=== PATIENT | female | born 1970 | race Caucasian/White ===

== ENCOUNTER 2024-05-05 17:33 | Emergency (ER) | payer OTHER, SELFPAY ==
[2024-05-05 17:40] VITALS: BP 142/88; PULSE 70; RESP 18; TEMP 36.7; O2SAT 96; BMI 34.3
--- NOTE | 2024-05-05 17:58 | CRLHL7_ITS ---
For Patients: As a result of the Cures Act, medical imaging exams and procedure reports are released immediately into your electronic medical record. You may view this report before your referring provider. If you have questions, please contact your health care provider. Indication: .FOOSH, FELT POP AND POP BACK IN Technique: Three views right shoulder. Comparison: None. Findings/Impression: Ossific focus overlying the superior aspect of the humeral head. Favoring osseous loose body versus a fracture fragment given history of potential reported dislocation. No malalignment. No soft tissue swelling. Joint spaces are maintained. Bony mineralization is age appropriate. Dictated by Juancho Villaseñor MD @ 05/05/2024 6:20:19 PM (Electronically Signed)
--- NOTE | 2024-05-05 18:00 | ED.GENADULT ---
HPI - General Adult General Chief complaint: Extremity Pain/Injury, Upper Stated complaint: Fall, r shoulder injury Time Seen by Provider: 05/05/24 17:34 Source: patient Mode of arrival: ambulatory Limitations: no limitations History of Present Illness HPI narrative: 54-year-old female presents the emergency department 90 minutes after a fall on her outstretched hands. She reports she was walking through a parking garage in [place]. She tripped over some uneven concrete. She fell quickly forward but was able to kind of half we catch herself on her hands before then the main impact was on to her right shoulder. She said she felt like there was a pop and then when she went to get back up she says that she possibly feels like the shoulder popped back in. She has never had a previous dislocation, major injury or surgery to that area. She is able to move the elbow, wrist and hand with no complication. She does think that are may be starting to swell. She has exquisite pain any time she tries to abduct the arm at the shoulder. No other areas of injury noted. She did take a 1000 mg of Tylenol p.o. x1 about 1 hour ago. No anticoagulants. No history of neuropathy. No cardiopulmonary symptoms. No recent illness. Past medical history notable for depression anxiety. Reports that her only home medication is sertraline. No allergies. Nonsmoker. ROS is notable for no other skin, neurological, musculoskeletal or generalized concerns today. Related Data Home Medications ?Medication ?Instructions ?Recorded ?Confirmed esomeprazole magnesium 20 mg 20 mg PO DAILY 05/05/24 05/05/24 capsule,delayed release hydroxyzine HCl 10 mg tablet 10 mg PO Q8H PRN 05/05/24 05/05/24 sertraline 50 mg tablet (Zoloft) 50 mg PO DAILY 05/05/24 05/05/24 tizanidine 4 mg capsule 4 mg PO Q6H PRN 05/05/24 05/05/24 Allergies Allergy/AdvReac Type Severity Reaction Status Date / Time No Known Drug Allergies Allergy Verified 05/05/24 17:39 Exam Const: Vital Signs, click to edit/add: Vital Signs - 24 hr 05/05/24 17:40 Temperature 98.0 F Pulse Rate [Pulse Oximeter] 70 Respiratory Rate 18 Blood Pressure [Le ft Upper Arm] 142/88 H Pulse Oximetry 96 Oxygen Delivery Me thod Room Air Documenting provider has reviewed patient's vital signs: yes Common normals: no apparent distress General appearance: cooperative and well kempt Other: Appears visibly uncomfortable but very cooperative. No signs of intoxication or impairment. HENMT: Common normals: normocephalic and head/scalp atraumatic Head and scalp: normocephalic and atraumatic Face and sinus: normal facial exam Mouth: oral and palatal mucosa normal Throat: posterior oropharynx normal Eye: Common normals: conjunctivae normal General eye: normal appearance of both eyes Conjunctiva: conjunctiva(e) normal Neck & C-Spine: General: normal visual inspection Resp: Common normals: normal respiratory effort and no use of accessory muscles Effort & inspection: able to speak in complete sentences Cardio: Other: Regular radial pulses both sides. Normal capillary refill in all fingers. Extremity: Other: Right arm has no point bony tenderness to the acromion, clavicle or humeral head. Mild swelling is appreciated. Patient has significant pain with flexion, extension and abduction of the shoulder. No obvious gross deformity visible. Patient has normal range of motion of elbow to flexion extension supination and pronation. Both wrists with normal range of motion as she also has normal strength and movement in both hands. Hands without visual deformity, abrasion or major injury. Psych: Appearance: well kempt Attitude: engaged Activity/motor behavior: appropriate eye contact Mood and affect: euthymic mood Insight: insight good Judgement: judgment good Skin: Common normals: no rashes or lesions noted General skin exam: no rashes or lesions noted Course Course ED Course: 54-year-old female with fall on outstretched hands and then impact to right shoulder. Fall from standing height. Differential diagnosis including sprain, rotator cuff tear, shoulder, labral tear, dislocation with spontaneous relocation, sprain, tendon or ligamentous injury. Does not seem to be any evidence of neurovascular injuries distal to shoulder. Recommend Toradol and oxycodone for pain as she has already taken Tylenol. X-ray. Await findings. Reevaluation(s) Time of Reevaluation #1: 18:48 Reevaluation #1: Counseled patient on x-ray findings. No obvious large fracture but there is a small loose body that is suspicious for a small avulsion fracture. Could potentially have ligamentous tear. No obvious shoulder separation does have some mild degenerative changes, not uncommon for age. She is feeling somewhat better from the Toradol and oxycodone already. Counseled on use of a sling with activity, taking out of the sling at rest and performing [id number] exercises. I do have some concerns due to the loose body and amount of pain that she may have a larger injury. Referral has been placed for Orthopedics. She will call in the morning to secure her appointment. Counseled on Tylenol for primary pain management. Prescriptions for Toradol and then oxycodone given as well. Hopefully the oxycodone is only needed at night. Counseled on [id number] sleep aids. 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 Off of work tomorrow. Alarm symptoms reviewed that would warrant ED presentation. She verbalizes understanding and agreement. Written instructions provided. Vital Signs Vital signs: Initial Vital Signs Temperature 98.0 F 05/05/24 17:40 Temperature Source Temporal Artery Scan 05/05/24 17:40 Pulse Rate 70 05/05/24 17:40 Pulse Rhythm Regular 05/05/24 17:40 Respiratory Rate 18 05/05/24 17:40 Blood Pressure 142/88 H 05/05/24 17:40 Blood Pressure Mean 106 H 05/05/24 17:40 Blood Pressure Position Sitting 05/05/24 17:40 Pulse Oximetry 96 05/05/24 17:40 Oxygen Delivery Method Room Air 05/05/24 17:40 Vital Signs Temperature 98.0 F 05/05/24 17:40 Pulse Rate 70 05/05/24 17:40 Respiratory Rate 18 05/05/24 17:40 Blood Pressure 142/88 H 05/05/24 17:40 Pulse Oximetry 96 05/05/24 17:40 Oxygen Delivery Method Room Air 05/05/24 17:40 Temperature 98.0 F 05/05/24 17:40 Pulse Rate 70 05/05/24 17:40 Respiratory Rate 18 05/05/24 17:40 Blood Pressure 142/88 H 05/05/24 17:40 Pulse Oximetry 96 05/05/24 17:40 Oxygen Delivery Method Room Air 05/05/24 17:40 Medications Administered Medications: Discontinued Medications Generic Name Dose Route Start Last Admin Trade Name Freq PRN Reason Stop Dose Admin Ketorolac Tromethamine 10 mg 05/05/24 18:00 05/05/24 18:12 Ketorolac 10 Mg Tablet PO 05/05/24 18:01 10 mg ONCE ONE Administration Oxycodone HCl 5 mg 05/05/24 18:00 05/05/24 18:13 Oxycodone 5 Mg Tablet PO 05/05/24 18:01 5 mg ONCE ONE Administration Medical Decision Making Imaging Data X-ray right shoulder: Attestation: I have reviewed the pertinent imaging results. My impression: Looks like a little fracture segment versus loose body at the superior humeral head, best seen on the AP view. Radiologist's impression: Findings/Impression: Ossific focus overlying the superior aspect of the humeral head. Favoring osseous loose body versus a fracture fragment given history of potential reported dislocation. No malalignment. No soft tissue swelling. Joint spaces are maintained. Bony mineralization is age appropriate. Dictated by Juancho Villaseñor MD @ 05/05/2024 6:20:19 PM Discharge Plan Discharge Clinical Impression: Shoulder sprain Patient Disposition: Home w/ Parent or Adult Condition: Stable Instructions: Shoulder Sprain (ED) Additional Instructions: As we discussed, I do have concern that there could be a small fracture and or ligament tear from her injury. Like you, I do suspect that you dislocated your shoulder with the fall and then the shoulder went back in socket. This often stretches and can tear supporting ligaments. It is not uncommon that these heal spontaneously and do not need surgery. Because I do have more concerns with your injury than the typical shoulder sprain, I would recommend that you follow-up with Orthopedics soon. Please call [phone] tomorrow morning to set up an appointment. They will usually see you within a week or so. Expect the arm to be a little swollen and very tender with movement. As we discussed, try to perform some range of motion exercises every hour or so while awake to help keep the shoulder from getting too stiff. Wear the sling with ambulation and activity just for protection. Feel free to adjust this as needed for optimal comfort. You may take it off to shower and sleep. For pain, recommend Tylenol 1000 mg every 6 hours. I have also given you prescription for Toradol 10 mg up to every 6 hours as needed as well. Rumor that this medication axis similarly to ibuprofen, do not also take ibuprofen while you are using the Toradol. When she ran out of the Toradol, you may turns his gonzalez on to 600 mg of ibuprofen every 6 hours. I have also given you a very small supply of oxycodone. I am hoping that you only need this at night. You may use 1-2 tablets at a time. If you need more of them, that would need to come from her primary care provider and or orthopedic team. It is okay to use gentle [id number] sleep aids like Tylenol p.m., Unisom and or 10 mg of melatonin to help with sleep as well. Any signs of severe complications, please return to the emergency department. Activity Level: Activity as Tolerated Discharge Diet: Regular Prescriptions: No Action sertraline [Zoloft] 50 mg tablet 50 mg PO DAILY tizanidine 4 mg capsule 4 mg PO Q6H PRN Rx Instructions: do not exceed 3 doses per 24 hrs hydroxyzine HCl 10 mg tablet 10 mg PO Q8H PRN Rx Instructions: Take 1-2 tab by mouth every 8 hrs as needed for anxiety esomeprazole magnesium 20 mg capsule,delayed release(DR/EC) 20 mg PO DAILY Follow Up/Referrals: Orthopedics, [facility] [Provider Group] - 2 Days (1st available orthopedic provider) Stand Alone Forms: [facility] Info Instructions
[2024-05-05] MEDS: KETOROLAC 10 MG TABLET PO (18:12)
[2024-05-05] MEDS: OXYCODONE 5 MG TABLET PO (18:13)
--- OUTSIDE RECORDS SUMMARY | 2024-05-05 18:51 | XMS_ITS | Clinical Summary ---
Author Organization [facility] Address [place], [place] [address] Care Team Providers Care Software Design Engineer Name Role Phone Maikel Ulloa Primary Care Provider [phone] Allergies No known active allergies Medications Medication Sig Dispensed Refills Start Date End Date Status Esomeprazole Magnesium 20 mg grps 08/06/2020 Active tiZANidine (ZANAFLEX) 4 mg tabletIndication s:Migraine syndrome Take 1 Tablet (4 mg) by mouth every 6 hours if needed for Muscle Spasm. 90 Tablet 1 04/17/2022 Active hydrOXYzine HCL (ATARAX) 10 mg tabletIndication s:Depression with anxiety Take 1-2 Tablets (10-20 mg) by mouth every 8 hours if needed for Anxiety. 25 Tablet 2 06/16/2023 Active sertraline (ZOLOFT) 50 mg tabletIndication s:Depression with anxiety Take 1 Tablet (50 mg) by mouth every morning. 90 Tablet 3 07/16/2023 Active CPAPIndications: JON (obstructive sleep apnea) CPAP (E0601) machine for home use at pressure: 5-16 , Choice of mask (A7030 or A7034) w/full face cushion (A7031) x1/mo, nasal cushion (A7032) x2/mo, or nasal pillows (A7033) x 2/mo; Length of Need: 99 months; Frequency of use: Daily 1 Each 04/08/2024 Active CPAPIndications: JON (obstructive sleep apnea),Non-juan luis rative sleep New CPAP machine for home use at pressure: 5-16 cmw , Heated humidifier x 1 q 5 yr, Humidifier chamber x 1 q 6 mo, Full face mask x1 q 3mos, with cushion x 1 q mo, Heated tubing x 1 q 3 mo, Headgear x 1 q 6 mo, Filters: Disposable x 2 q mo non-disposable filters x1 q 6mo, Length of Need: 99 months, Frequency of use: Daily 1 Each 3 09/04/2023 04/08/2024 Discontinued (*Medication adjustment) Active Problems Problem Noted Date Diagnosed Date Chronic GERD 10/12/2018 Hot flashes 05/26/2016 Unspecified examination 04/14/2013 Overview (11/02/2018): mammo , 10/22 IGT (impaired glucose tolerance) 03/29/2013 Depression with anxiety 12/20/2010 Routine health maintenance 12/20/2010 Obese 12/20/2010 Resolved Problems Problem Noted Date Diagnosed Date Resolved Date Anemia 12/23/2010 10/08/2018 Encounters Date Type Department Care Team Description 04/08/2024 8:40 AM CDT Telemedicine [facility] [address] [facility] [address] [facility] [address] [place] [address] Mei Carney, LINK MACHINE OPERATOR Telehealth 04/07/2024 Travel from Last 3 Months Immunizations Name Administration Dates Next Due COVID-19 vaccine (Pfizer-Bio NTech 30mcg/0.3mL) 12YO+ BIVALENT PF, MDV 06/13/2022 COVID-19 vaccine (Pfizer-Bio NTech 30mcg/0.3mL) PF, MDV 06/10/2021,10/31/2020,10/10/2020 Influenza A (H1N1), Inactivated 07/11/2009 Influenza, IIV3 (Age >=3 years) 04/21/20 17,04/11/2016,04/10/2015,2013,04/11/2013,04/07/2012,04/10/2010 Influenza, IIV4 05/11/2023,04/17/2022,05/03/2021 Influenza, IIV4 (=>6mos) MDV 05/03/2019,04/27/20 18,04/17/2017 Influenza,CCIIV4 PRESERV FREE 04/18/2020 Rubella 12/13/2004 Td (Age >=7 Years) 06/06/2004 Tdap 05/26/2014 Zoster (Shingrix-RZV, recombinant) 05/03/2021, Family History Medical History Relation Name Comments Good Health Daughter Cancer-prostate Father Cancer-breast Maternal Aunt Heart attack Maternal Grandfather Cancer Maternal Grandmother Alzheimer's disease Mother Cancer-breast Mother Mental illness Paternal Grandmother Good Health Sister Relation Name Status Comments Daughter Alive Father Alive Maternal Aunt diagnosed 40 Maternal Grandfather Maternal Grandmother Mother Alive Paternal Grandfather Paternal Grandmother Sister Alive Social History Tobacco Use Types Packs/Day Years Used Date Smoking Tobacco: Never Smokeless Tobacco: Never Tobacco Cessation:Counseling Given: Yes Alcohol Use Standard Drinks/Week Comments Yes 1 (1 standard drink = 0.6 oz pur e alcohol) 1-2 a week PHQ-2 Answer Date Recorded PHQ-2 TOTAL SCORE 1 06/16/2023 Social Connections Answer Date Recorded Do you often feel lonely or isolated from those around you? 0 06/16/2023 Financial Resource Strain Answer Date R ecorded Difficulty of Paying Living Expenses 3 06/16/2023 Difficulty of Paying Living Expenses Not on file 06/16/2023 Food Insecurity Answer Date Recorded Do you worry your food will run out before you are able to buy more? 1 06/16/2023 Transportation Needs Answer Date Record ed Does lack of transportation keep you from medica l appointments? 1 06/16/2023 Does lack of transportation keep you from work, meetings or getting things that you need? 1 06/16/2023 Housing Stability Answer Date Recorded What is your housing situation today? 1 06/16/2023 Sex and Gender Information Value Date Recorded Sex Assigned at Female 01/10/2021 9:23 AM CDT Gender Identity Female 01/10/2021 9:23 AM CDT Sexual Orientation Straight 01/10/2021 9: 23 AM CDT Obstetrics History Last Filed Vital Signs Vital Sign Reading Time Taken Comments Blood Pressure 122/74 06/16/2023 10:51 AM HORSE BUYER Pulse 76 04/17/2022 8:29 AM CDT Temperature 37.3 ??C (99.1 ??F) 02/02/2019 4:46 PM CD T Respiratory Rate 16 02/02/2019 4:46 PM CDT Oxygen Saturation 97% 02/02/2019 4:46 PM CDT Inhaled Oxygen Concentration - - Weight 103 kg (227 lb) 06/16/2023 10:51 AM HORSE BUYER Height 163.2 cm (5' 4.25) 06/16/2023 10:[address] Body Mass Index 38.66 06/16/2023 10:51 AM HORSE BUYER Plan of Treatment Health Maintenance Due Date Last Done Comments HIV for age 15-65 12/31/1982 Hepatitis C screening for age 18-79 12/31/1985 COVID-19 vaccine series (2023- season) 2024 05/15/2023, 06/13/2022, 06/10/2021, Additional history exists Influenza for age 50-64 03/06/2024 05/11/20 23, 04/17/2022, 05/03/2021, Additional history exists Tetanus booster 05/26/2024 05/26/2014, 08/2003, 06/06/2004 BMI (ht and wt on same day) for age 18+ 06/16/2024 06/16/2023, 04/17/2022, 02/02/2019, Additional history exists Depression screening for age 12+ 06/18/2024 06/18/2023, 06/16/2023, 05/22/2022, Additional history exists Mammogram for age 45-75 08/17/2024 08/17/19 24, 06/18/2022, 04/03/2021, Additional history exists Colonoscopy through age 75 09/20/2024 09/20/2021, Pap test for age 21-65 01/22/2026 , 01/22/2021, 05/26/2016, Additional history exists Lipids for age 45-75 09/30/2028 10/01/2023, 06/16/2023, 04/17/2022, Additional history exists Tdap Completed 05/26/2014 Zoster (shingles) series for age 50+ Completed 05/03/2021, 02/01/2021 Pneumococcal series for age 6-64 Aged Out No longer eligible based on patient's age to complete this topic Procedures Procedure Name Priority Date/Time Associated Diagnosis Comments LIPID PANEL W REFLEX MEASURED LDL Routine 10/01/2023 9:07 AM CDT Abnormal cholesterol test XR MAMMO SARA BILAT SCREEN Routine 08/17/2023 12:05 PM HORSE BUYER Encounter for screening mammogram for breast cancer SCAN-COLONOSCOPY 09/20/2021 9:00 AM CDT SPOOL TENDER THIN PREP PAP SCREEN IMAGED Routine 01/22/2021 8:10 AM CDT Pap smear for cervical cancer screening from Last 3 Months or Most Recently Relevant to Health Maintenance Results * (ABNORMAL) LIPID PANEL W REFLEX MEASURED LDL (10/01/2023 9:07 AM CDT) CHOLESTEROL,TOTAL 182 100 - 199 mg/dL 10/01/2023 2:42 PM CDT [facility] Comment: Cholesterol, Total Reference Ranges Desirable <200 mg/dL Borderline 200-239 mg/dL High >=240 mg/dL TRIGLYCERIDES 152(H) <150 mg/dL 10/01/2023 2:42 PM CDT [facility] Pembe Panjur [facility] HDL CHOLESTEROL 43 >40 mg/dL 2:42 PM CDT [facility] NON-HDL CHOLESTEROL 139 <145 mg/dl 10/01/2023 2:42 PM CDT [facility] CHOL/HDL RATIO 4.23 <4.50 10/01/2023 2:42 PM CDT [facility] LDL CHOLESTEROL 109 <=130 mg/dL 10/01/2023 2:42 PM CDT [facility] VLDL CHOLESTEROL 30 <=30 mg/dL 10/01/2023 2:42 PM CDT [facility] PROVIDER ORDERED STATUS FASTING 10/01/2023 2:42 PM CDT [facility] Blood BLOOD SPECIMEN / Unknown Venipuncture / Unknown 10/01/2023 9:07 AM CDT 10/01/2023 9:09 AM CDT Maikel BAILON CHEMISTRY [facility] [address] [place] [address], * XR MAMMO SARA BILAT SCREEN (08/17/2023 12:05 PM HORSE BUYER) Anatomical Region Laterality Modality BREASTS, Breast Left, Breast Right Bilateral Mammography Impressions 08/18/2023 9:53 AM HORSE BUYER ??There is no radiographic evidence for malignancy. ??Recommend annual mammograms. MAMMOGRAM ASSESSMENT: ??ACR 1 Negative PATIENTS: You will also receive a letter with your examination results in an easy to read format. ??If you have questions about your results, please contact your referring provider. Narrative 08/18/2023 9:53 AM HORSE BUYER For Patients: As a result of the Cures Act, medical imaging exams and procedure reports are released immediately into your electronic medical record. You may view this report before your referring provider. If you have questions, please contact your health care provider. XR MAMMO SARA BILAT SCREEN [[id number]] CLINICAL HISTORY: ??This is an asymptomatic 53 y.o. patient. INDICATION FOR EXAM: Mammogram Screening. TECHNIQUE: CC & MLO views were obtained. ??This study was evaluated with the assistance of Computer-Aided Detection. Breast Tomosynthesis was used in interpretation. COMPARISON FILM: Yes 06/18/22 [facility] 04/03/21 [facility] FINDINGS: ??The breasts have scattered areas of fibroglandular density. There are no dominant masses, suspicious micro calcifications or areas of architectural distortion. Maikel BAILON MAMMO * SCAN-COLONOSCOPY (09/20/2021 9:00 AM CDT) Narrative Procedure Note Haris Falcon DO - 09/20/2021 8:16 AM CDT [facility] [address] [place] [address], [address], [place] [address] Patient Name: Daisy Brooks Gender: Female Exam Date: 09/20/2021 Visit Number: [id number] Age: 51 Years Date of : 1970 Attending MD: Haris Falcon DO Medical Record#: [id number] Procedure: Colonoscopy Indications: Colorectal cancer screening Previous colonoscopy aborted due to vomiting Referring MD: Maikel DOE Primary MD: Maikel DOE Medications: Admitting Medications: 0.9% Normal Saline at TKO Ondansetron Hydrochloride (Zofran) given 4mg by IV Intra Procedure Medications: Patient received monitored anesthesia care. Complications: No immediate complications Procedure: An examination of the heart and lungs was performed and found to be withinacceptable limits. . The patient was therefore deemed a reasonablecandidate for endoscopy and sedation. The risks and benefits of the procedure were explained to the patient.After obtaining informed consent, the patient received monitoredanesthesia care and I passed the scope without difficulty via the rectum to the cecum. The appendiceal orificeand ic valve were identified. The scope was retroflexed during theexamination The quality of the prep was fair (Miralax/Gatorade/2 tabletsBisacodyl/Magnesium Citrate). This was a complete examination throughout the entire colon. Findings: Polyp location: rectum. Quantity: 1. Size: 12 mm. Polyp shape: flatlesion. Maneuver: polypectomy was performed with a cold snare. Removal: complete. Retrieval: complete. Bleeding: none. Diverticulosis. Location: - sigmoid. Description: mild. Noinflammation present. Hemorrhoids. Internal and external hemorrhoids without bleeding. Remainder of the exam is normal. Impression: Rectal polyp Diverticular disease Hemorrhoids, unspecified hemorrhoid type impression comments: As with the previous exam, the patient was notedto be prone to retching/coughing during colonoscopy. Thankfully, therewas no serjio emesis during these procedures. Preliminary Plan: Recommendation Comments: 1. Await biopsy results. 2. Further endoscopic procedures should be scheduled in the hospital, lowthreshold for intubation/airway protection. Procedure: Upper GI Endoscopy Indications: Abdominal Pain Early satiety GERD Provider: Haris Ezekiel DO Referring MD: Maikel DOE Primary MD: Maikel DOE Medications: Admitting Medication: 0.9% Normal Saline at TKO Ondansetron Hydrochloride (Zofran) given 4mg by IV Intra Procedure Medications: Patient received monitored anesthesia care. Complications: No immediate complications Procedure: An examination of the heart and lungs was performed within acceptablelimits. . The patient was therefore deemed a reasonable candidate forsedation. The risks and benefits were explained to the patient, who appeared tounderstand. After obtaining informed consent, the scope was passed underdirect vision. Throughout the procedure the patient's blood pressure,pulse and oxygen saturations were monitored. The scope was introducedthrough the mouth and advanced to the second portion of duodenum. Findings: Esophagus: Normal esophagus. The z-line is 38 centimeters from the incisors. Top of the gastric foldsis 38 centimeters from the incisors. Stomach: Normal stomach. The diaphragm hiatus is at 38 centimeters from the incisors. *Stomach Comments: Biopsies obtained from the gastric antrum, incisura,and body with a cold forceps. Duodenum: Normal duodenum. Celiac Sprue biopsies taken. Celiac Sprue biopsies taken. Impression: GERD without esophagitis Generalized postprandial abdominal pain Early satiety MD Impression Comments: Gastric emptying study from 04/2021 noted to benormal. No findings on this exam to account for symptoms. Preliminary Plan: Recommendation Comments: 1. Await biopsy results. 2. Colonoscopy as scheduled. 3. Return to GI clinic. Pathology Results: A: DUODENUM, BIOPSY: 1. Normal duodenal mucosa 2. Negative for celiac disease and other enteropathy B: STOMACH, BIOPSY: 1. Normal gastric antral and body mucosae 2. Negative for Helicobacter C: RECTUM, POLYP: 1. Tubular adenoma consistent with advanced adenoma due to size(see comment) 2. Negative for high grade dysplasia and invasive malignancy 3. Per the colonoscopy report: a. Polyp size: 12 mm b. Resection: Complete c. Retrieval: Complete COMMENTS C. Advanced adenoma of the colorectum is defined by the [place] [employer] G[employer] (ACG) as an adenoma that is 1 cm or more in size,contains an appreciable villous component, or has high grade dysplasia(David RIVERS; Polyp Guideline: Diagnosis, Treatment, and Surveillance forPatients with Colorectal Polyps. Am J [id number];95(11):1760-0440). This polyp qualifies as such. Patients withadvanced adenomas are at increased risk for synchronous and metachronousadditional advanced adenomas. Appropriate follow-up is suggested. MICROSCOPIC A: Performed B: Performed C: Performed Electronically signed by: Deann Maravilla MD Interpreted at [facility], [address] [place] [address] Orders Instruction(s)/Education: Instruction/Education Timeframe Assessment Colon Cancer Prevention K62.1 Colon Polyps K62.1 Diverticulosis/Diverticulitis K62.1 Hemorrhoids (External) K62.1 Hemorrhoids (Internal) K62.1 High Fiber Diet K62.1 Final Plan: Repeat colonoscopy in 3 years. We will attempt to contact you at appropriate intervals via U.S. mail. Wemay not be able to find you or contact you at that time, therefore youshould know that the responsibility for following our recommendation restswith you. If you don't hear from us at the time your procedure is due,please contact our office to schedule an appointment. If your contactinformation should change, please contact our office so that we can updateyour record. Additional Comments: We will arrange a follow up colonoscopy for you in 3 years. _Electronically signed by: Haris Falcon DO 09/20/2021 cc: Maikel Ulloa PAC cc: Maikel Ulloa PAC Haris Falcon DO OTHER * SPOOL TENDER THIN PREP PAP SCREEN IMAGED (01/22/2021 8:10 AM CDT) Case Report Gynecologic Cytology Report ? Case: [id number] ? Authorizing Provider: ??Maikel Ulloa PA ? Collected: ? 01/22/2021 0810 ? Ordering Location: ? [facility] ?Received: ?01/22/2021 0823 ? Clinic ? First Screen: ?Tiff Holloway ? Specimen: ?SPOOL TENDER ThinPrep Vial Screening, Cervical ? 01/31/2021 10:48 AM CDT [facility] Pembe Pan[facility] INTERPRETATION/ RESULT NEGATIVE FOR INTRAEPITHELIAL LESION OR MALIGNANCY (NIL) (none) 01/31/2021 10:48 AM T [facility]- [facility] IMEN ADEQUACY Satisfactory for evaluation Endocervical component present 01/31/2021 10:48 AM CDT [facility] HPV REQUEST HPV and PAP 01/31/2021 10:48 AM CDT [facility] Pembe Panjur LABORATORY-C ENTRAL LABORATORY Date of LMP unknown 01/31/2021 10:48 AM CDT [facility] Last Pap Date 05/26/16 01/31/2021 10:48 AM CDT [facility] Last Pap Result NIL 10:48 AM CDT [facility] Abnormal Pap or Ennis Bx in last 5 years No 01/31/2021 10:48 AM CDT [facility] Menstrual Status Postmenopausal 01/31/2021 10:48 AM CDT [facility] Ennis Bx Done Today No 01/31/2021 10:48 AM CDT [facility] Additional Information None given 01/31/2021 10:48 AM CDT [facility] Comment: Cytology is screened at [facility] - [address], [place] [address] and [facility] - [address], [place] [address] and [facility] - [address] [place] [address] Interpreted at [facility] - [address] [place] [id number] Automated Review Successful 01/31/2021 10:48 AM CDT [facility] Comment:Specimen processed s uccessfully by automated lock setter device, ThinPrep Imaging System, [employer] ANCILLARY TESTING SPOOL TENDER HPV Ordered, Please see separate report 01/31/2021 10:48 AM CDT [facility] Note The pap test is a screening technique, not a diagnostic procedure. It is used primarily to screen for squamous cancers and precursor lesions. Published studies have shown that it is subject to both false negative and false positive results. The pap test should not be used as the sole means to diagnose or exclude pre-malignant and malignant lesions. 01/31/2021 10:48 AM CDT [facility] Other (Cervical) Non-Blood / Unknown 01/22/2021 8:10 AM CDT 01/22/2021 8:23 AM CDT Maikel BAILON PATHOLOGY/CYTOLOGY [facility] [address] [place] [address], [place] from Last 3 Months or Most Recently Relevant to Health Maintenance Advance Directives * Full Code (Latest Code Status on File) Date Activated Date Inactivated Comments 10/18/2018 9:47 AM 10/18/2018 3:16 PM Care Teams Software Design Engineer Relationship Specialty [place] [address] [place] [address] PCP - General Physician Morning Nanny 01/14/21
--- OUTSIDE RECORDS SUMMARY | 2024-05-05 18:51 | XMS_ITS | Referral Summary ---
Author Organization [place] Address [address] [place] [address] Care Team Providers Care Health Information Management Director Name Role Phone Juan José Doherty MD Primary Care Provider [phone] Allergies No known active allergies Medications CITALOPRAM HYDROBROMIDE PO Acti ve oxyCODONE (ROXICODONE) 5 MG tablet Take 1 tablet (5 mg) by mouth every 6 hours as needed for pain 12 tablet 07/01/2019 Active Social History Tobacco Use Types Packs/Day Years Used Date Smoking Tobacco: Never Assessed Adolescent Education Answer Date Record ed Getting School Help Needed Not on file 04/12 Comments Unknown Sex and Gender Information Value Date Recorded Sex Assigned at Female 04/30/2021 7:14 PM CDT Legal Sex Female 3:18 AM TELEPHONE INSTRUMENT SUPERVISOR Gender Identity Female 04/30/2021 7:14 PM CDT Sexual Orientation Straight 04/30/2021 7: 14 PM CDT Last Filed Vital Signs Vital Sign Reading Time Taken Comments Blood Pressure 138/91 07/02/2019 12:00 AM TELEPHONE INSTRUMENT SUPERVISOR Pulse 75 07/02/2019 12:00 AM TELEPHONE INSTRUMENT SUPERVISOR Temperature 37.1 ??C (98.7 ??F) 07/01/2019 7:44 PM CS T Respiratory Rate 18 07/01/2019 7:44 PM TELEPHONE INSTRUMENT SUPERVISOR Oxygen Saturation 92% 07/02/2019 12:00 AM TELEPHONE INSTRUMENT SUPERVISOR Inhaled Oxygen Concentration - - Weight 99.8 kg (220 lb) 07/01/2019 7:44 PM TELEPHONE INSTRUMENT SUPERVISOR Height - - Body Mass Index - - Plan of Treatment Not on file Procedures Procedure Name Priority Date/Time Associated Diagnosis Comments BASIC METABOLIC PANEL STAT 07/01/2019 9:25 PM TELEPHONE INSTRUMENT SUPERVISOR from Last 3 Months or Most Recently Relevant to Health Maintenance Results * (ABNORMAL) Basic metabolic panel (07/01/2019 9:25 PM TELEPHONE INSTRUMENT SUPERVISOR) Sodium 138 133 - 144 mmol/L 07/01/2019 9:49 PM [facility] Potassium 3.7 3.4 - 5.3 mmol/L 07/01/2019 9:49 PM [facility] Chloride 106 94 - 109 mmol/L 07/01/2019 9:49 PM [facility] Carbon Dioxide 28 20 - 32 mmol/L 07/01/2019 9:55 PM [facility] Anion Gap 4 3 - 14 mmol/L 07/01/2019 9:55 PM [facility] Glucose 116(H) 70 - 99 mg/dL 07/01/2019 9:55 PM [facility] Urea Nitrogen 7 7 - 30 mg/dL 07/01/2019 9:55 PM [facility] Creatinine 0.80 0.52 - 1.04 mg/dL 07/01/2019 9:55 PM [facility] GFR Estimate 85 >60 mL/min/{1. 73_m2} 07/01/2019 9:55 PM [facility] Comment: Non GFR Calc Starting 06/22/2018, serum creatinine based estimated GFR (eGFR) will be calculated using the Chronic Kidney Disease Epidemiology Collaboration (CKD-EPI) equation. GFR Estimate If Black >90 >60 mL/min/{1. 73_m2} 07/01/2019 9:55 PM [facility] Comment: GFR Calc Starting 06/22/2018, serum creatinine based estimated GFR (eGFR) will be calculated using the Chronic Kidney Disease Epidemiology Collaboration (CKD-EPI) equation. Calcium 9.2 8.5 - 10.1 mg/dL 07/01/2019 9:55 PM [facility] Blood specimen (specimen) 07/01/2019 9:25 PM TELEPHONE INSTRUMENT SUPERVISOR 07/01/2019 9:34 PM TELEPHONE INSTRUMENT SUPERVISOR us Stephane Blanchard MD LAB - BLOOD ORDERABLES Final Result [facility] [address] [place] [address], [facility] [phone] from Last 3 Months or Most Recently Relevant to Health Maintenance Insurance [employer] Care Teams Health Information Management Director Relationship Specialty Start Date End Date Juan José Doherty MD [facility] [address] [place] [address] PCP - General Family Practice 07/01/19
--- OUTSIDE RECORDS SUMMARY | 2024-05-05 18:51 | XMS_ITS | Clinical Summary ---
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 Temperature 37.1 ??C (98.7 ??F) 07/01/2019 7:44 PM CS T Respiratory Rate 18 07/01/2019 7:44 PM 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 Oxygen Saturation 92% 07/02/2019 12:00 AM 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 Inhaled Oxygen Concentration - - Weight 99.8 kg (220 lb) 07/01/2019 7:44 PM 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 Height - - Body Mass Index - - Plan of Treatment Health Maintenance Due Date Last Done Comments ADVANCE CARE PLANNING 1970 ANNUAL REVIEW OF HM ORDERS 1970 CT COLONOGRAPHY 1970 FIT 1970 FLEX SIG 1970 sDNA (Cologuard) 1970 COLONOSCOPY 12/31/1977 COLORECTAL CANCER SCREENING 12/31/1977 HIV SCREENING 12/31/1982 HEPATITIS C SCREENING 12/31/1985 HEPATITIS B IMMUNIZATION (1 of 3 - 19+ 3-dose series) 12/31/1986 PAP 12/31/1988 LIPID 2008 ZOSTER IMMUNIZATION (2 of 2) 03/29/2021 02/01/2021 YEARLY PREVENTIVE VISIT 01/22/2022 01/22/2021 GLUCOSE 07/01/2022 07/01/2019, 07/31/2014 MAMMO SCREENING 04/03/2023 04/03/2021 PHQ-2 (once per calendar year) 2023 COVID-19 Vaccine ( - season) 2024 10/31/2020, 10/10/2020 INFLUENZA VACCINE (#1) 2024 0, 04/21/2017, 04/11/2016, Additional history exists DTAP/TDAP/TD IMMUNIZATION (2 - Td or Tdap) 05/26/2024 05/26/2014, 06/06/2004 RSV VACCINE (1 - 1-dose 75+ series) 12/31/2042 HPV IMMUNIZATION Aged Out No longer e ligible based on patient's age to complete this topic MENINGITIS IMMUNIZATION Aged Out No l onger eligible based on patient's age to complete this topic Pneumococcal Vaccine: Pediatrics (0 to 5 Years) and At-Risk Patients (6 to 64 Years) Aged Out No longer eligible based on patient's age to complete this topic RSV MONOCLONAL ANTIBODY Aged Out No l onger eligible based on patient's age to complete this topic Procedures Procedure Name Priority Date/Time Associated Diagnosis Comments BASIC METABOLIC PANEL STAT 07/01/2019 9:25 PM 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 from Last 3 Months or Most Recently Relevant to Health Maintenance Results * (ABNORMAL) Basic metabolic panel (07/01/2019 9:25 PM STUD 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) Sodium 138 133 - 144 mmol/L 07/01/2019 9:49 PM [facility] Potassium 3.7 3.4 - 5.3 mmol/L 07/01/2019 9:49 PM [facility] Chloride 106 94 - 109 mmol/L 07/01/2019 9:49 PM [facility] Carbon Dioxide 28 20 - 32 mmol/L 07/01/2019 9:55 PM [facility] Anion Gap 4 3 - 14 mmol/L 07/01/2019 9:55 PM [facility] Glucose 116(H) 70 - 99 mg/dL 07/01/2019 9:55 PM [facility] Urea Nitrogen 7 7 - 30 mg/dL 07/01/2019 9:55 PM [facility] Creatinine 0.80 0.52 - 1.04 mg/dL 07/01/2019 9:55 PM [facility] GFR Estimate 85 >60 mL/min/{1. 73_m2} 07/01/2019 9:55 PM [facility] Comment: Non GFR Calc Starting 06/22/2018, serum creatinine based estimated GFR (eGFR) will be calculated using the Chronic Kidney Disease Epidemiology Collaboration (CKD-EPI) equation. GFR Estimate If Black >90 >60 mL/min/{1. 73_m2} 07/01/2019 9:55 PM [facility] Comment: GFR Calc Starting 06/22/2018, serum creatinine based estimated GFR (eGFR) will be calculated using the Chronic Kidney Disease Epidemiology Collaboration (CKD-EPI) equation. 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
--- OUTSIDE RECORDS SUMMARY | 2024-05-05 18:51 | XMS_ITS | Encounter Summary ---
Author Organization [facility] Address [address] [place] [address] Care Team Providers Care Deputy Prosecuting Attorney Name Role Phone Juan José Doherty MD Primary Care Provider [phone] Encounter Details Date Type Department Care Team (Late st Contact Info) Description 07/31/2017 [facility] [address], [facility] [address] [place] [address] [facility] Social History Tobacco Use Types Packs/Day Years Used Date Smoking Tobacco: Never Assessed Comments Unknown Sex and Gender Information Value Date Recorded Sex Assigned at Female 04/30/2021 7:14 PM CDT 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
== END 2024-05-05 19:03 | disposition home or self-care (01) ==
LOC: ED 18:48
PROVIDERS: Emergency Provider Family Medicine; PCP Physician Assistant Medical
DX: S43.401A Unspecified sprain of right shoulder joint, initial encounter (principal); W18.30XA Fall on same level, unspecified, initial encounter
CPT/HCPCS: 73030; 99283; 99284; A9270

== ENCOUNTER 2024-05-20 08:21 | Outpatient (CLI) | payer OTHER, SELFPAY ==
--- NOTE | 2024-05-20 08:15 | CRLHL7_ITS ---
For Patients: As a result of the Century Cures Act, medical imaging exams and procedure reports are released immediately into your electronic medical record. You may view this report before your referring provider. If you have questions, please contact your health care provider. Indication: Right shoulder pain. Comparison: 05/05/2024 Procedure : Informed consent was obtained. The site was marked. Time-out was performed. The skin of the right shoulder was cleansed with ChloraPrep. A sterile drape was placed. 8 cc of 1 percent lidocaine was administered for superficial anesthesia. Subsequently a 22 gauge spinal needle was introduced into the right shoulder joint under intermittent fluoroscopic guidance. Injection of 2 cc nonionic Omnipaque 240 contrast confirmed intra-articular location. Subsequently 11 cc of dilute gadolinium were injected. The needle was removed and hemostasis achieved with direct pressure. A dressing was placed. The patient tolerated the procedure well without immediate complication and was immediately sent to MRI for imaging. Total fluoroscopy time 22 seconds. Impression: Successful fluoroscopically guided right shoulder arthrogram for MRI. Dictated by Juancho Barba MD @ 05/20/2024 1:26:37 PM (Electronically Signed)
--- NOTE | 2024-05-20 09:15 | MR_ITS ---
[address] [address] Phone:?[phone] Fax:?[phone] Referring Physician Information: ADAMARIS Cruz [address] [facility] [address] Phone:?[phone] Fax:?[phone] Patient:Humphrey Palm D.O.B:?1970 Sex:?Female Phone:?[phone] [facility] MRN:?[id number] Exam Date:?05/20/2024 EXAM: MR ARTHROGRAM of the RIGHT SHOULDER CLINICAL INFORMATION: Female, 54 years old, with right shoulder pain following a dislocation injury. INDICATION: Evaluate for labral tear. PRIOR SURGERY: None reported. PLAIN FILMS: Shoulder radiographs dated 05/05/2024. COMPARISONS: No prior MRIs available. TECHNICAL INFORMATION: Exam performed after the injection of gadolinium-based contrast into the glenohumeral joint of the right shoulder, reported separately. Using a 1.5T MR scanner and a localizing surface coil: coronal obliques: PD, T2FS, T1FS sagittal obliques: T2, PDFS axials: PD, PDFS SEDATION: None CONTRAST: No intravenous contrast was administered. FINDINGS: Bones: Proximal humerus: No fracture or marrow edema/pathology. Approximately 2.2 x 1.4 cm Hill-Sachs deformity, with 3 mm of impaction and moderate underlying bone marrow edema (sagittal PDFS series 8 image 8 and coronal PDFS series 5 image 20). Glenoid: No fracture or marrow edema/pathology. No osseous Bankart lesion. Rotator cuff and muscles/tendons: Supraspinatus & infraspinatus: Mild supraspinatus & infraspinatus tendinopathy with a 10 x 4 mm low-grade partial-thickness insertional footprint tearing involving the overlapping portion of the distal tendon fibers (sagittal PDFS series 8 image 5 and coronal PDFS series 5 image 4). No full-thickness tear or muscle atrophy. Teres minor: No tendinopathy, tear or atrophy. Subscapularis: Moderate subscapularis tendinopathy with high-grade interstitial tearing at the superior leading edge of the tendon measuring 1.2 x 1.8 cm (sagittal PDFS series 8 image 11 and axial PDFS series 3 image 17). Deltoid: No strain or atrophy. Coracoacromial arch: Acromion morphology: The acromion has type II morphology. No discrete subacromial osseous spur or os acromiale. Acromiohumeral space: The acromiohumeral space is within normal limits. Coracohumeral space: The coracohumeral space is within normal limits. Acromioclavicular joint: Joint: Mild AC joint arthropathy, without significant inferior osteophytosis or evidence of supraspinatus impingement. Ligaments: Coracoclavicular ligaments are intact. Bursae: Subacromial-subdeltoid: Mild subacromial subdeltoid bursal thickening/edema. Subcoracoid: No convincing subcoracoid bursal thickening/bursitis. Biceps tendon: The long head of the biceps tendon is medially dislocated at the superior aspect of the lesser tuberosity. Mild tendinopathy of the intra- articular biceps long head tendon, without split/tear. Glenohumeral joint: Contrast: Gadolinium-based contrast distends the glenohumeral joint, as expected, and fails to extend into the subacromial-subdeltoid bursa. Articular cartilage: Humeral head: No osteochondral abnormalities. Glenoid: Approximately 1.0 x 0.8 cm full-thickness osteochondral defect of the anteroinferior glenoid (axial PDFS series 3 image 17 and coronal PD series 7 image 14). Loose bodies: Approximately 1.1 x 0.8 cm osteochondral fragment in the axillary recess (coronal PD series 7 image 16 and sagittal PDFS series 8 image 16). Labrum & capsule: Circumferential tearing of the labrum, which appears complex along the anterior and anteroinferior segments and involves the anteroinferior joint capsule at its glenoid attachment. This is associated with an anteroinferior periosteal avulsion injury as well. IMPRESSION: 1. Findings in keeping with an anterior dislocation injury: -Circumferential labral tearing, which is complex anterior & anteroinferiorly and associated with partial tearing of the anteroinferior joint capsule as well as a periosteal avulsion injury. -Approximately 2.2 x 1.4 cm Hill-Sachs deformity, with 3 mm of impaction and moderate underlying bone marrow edema. -Approximately 10 x 8 mm full-thickness osteochondral defect of the anteroinferior glenoid, which is displaced into the axillary recess -No osseous Bankart lesion. 2. Findings in keeping with a biceps elias injury: -Moderate subscapularis tendinopathy with a 1.2 x 1.8 cm area of high-grade interstitial tearing extending to the superior leading edge of the tendon. -Medial subluxation the biceps long head tendon at the lesser tuberosity. -Mild tendinopathy of the intra-articular biceps long head tendon, without split/tear. 3. Mild supraspinatus & infraspinatus tendinopathy with a 10 x 4 mm area of low- grade partial-thickness insertional footprint tearing involving the overlapping portion of the distal tendon fibers. 4. Mild AC joint arthropathy with mild subacromial-subdeltoid bursal inflammation. However, the acromiohumeral space is normal. BC Electronically signed on 05/20/2024 11:07:00 AM by Negrito Frost M.D.
== END 2024-05-20 08:22 | disposition home or self-care (01) ==
LOC: RAD 08:22
PROVIDERS: PCP Physician Assistant Medical; Visit Provider Physician Assistant Surgical
DX: M25.511 Pain in right shoulder (principal); S49.91XA Unspecified injury of right shoulder and upper arm, initial encounter; M12.811 Other specific arthropathies, not elsewhere classified, right shoulder
CPT/HCPCS: 23350; 73222; 77002; A9575; Q9966

== ENCOUNTER 2025-04-07 21:33 | Inpatient (IN) | payer OTHER, SELFPAY ==
--- OUTSIDE RECORDS SUMMARY | 2025-04-07 02:43 | XMS_ITS | Continuity of Care Document ---
Author Organization [facility] Address [address] [address] [place] [address] Phone Care Team Providers Care Resin Remover Name Role Phone Mihai Vasquez MD Unavailable Unavaila ble Allergies, Adverse Reactions, Alerts Substance Reaction Status Criticality No Known Allergies Active No Inform ation Medications Medication Instructions Dosage Effective Dates (start - stop) Status Comments sertraline 50 mg tablet take 1 Tablet by ORAL route every day 50 MG - Active Nexium 24HR 20 mg tablet,delayed release - Active tizanidine 4 mg tablet take 1 Tablet by oral route every bedtime as needed not to exceed 3 doses in 24 hours 4 MG - Active Vitamin D3 50 mcg (2,000 unit) capsule take 1 Capsule by Oral route every day 1 Capsule - Active Advil 200 mg tablet take 3 Tablet by ora l route every 4 - 6 hours as needed with food as needed 600 MG - Active Procedures Procedure Date Offic/outpt E&m Estab Moderate Routine Serum Collection Colonoscopy Flex; W/remov Les- 25 Colonoscopy Flex; W/remov Les- 22 Ugi Endo; W/bx 1/mx Level Iv-surg Path Gross/micro Offic/outpt E&m New Mod Sever Advance Directives Directive Yes / No Effective Date File Name No Information Encounters Encounter Description Practice Location Reason(s) For Visit Diagnoses Date Provider Providers Copied on Encounter [facility], [address] [address], [place], [id number], [place] tel:[phone] [facility] No Information 5 Christina Holm. [address], [id number], [place]. tel:[phone] Offic/outpt E&m Estab Moderate [facility], [address] [address], [place], [id number], [place] tel:[phone] [facility] GI Symptoms or Concerns (chief complaint) Epigastric painNausea and vomiting, unspecified vomiting type 5 Christina Holm. [address] [place] [address], [id number], [place]. tel:[phone] Referring Provider: Referral Self, USE FOR SELF REFERRALS. [facility], [address] [address], [place], [id number], [place] tel:[phone] [facility] No Information 5 Michael Hernandez. [address] [facility], [address], [id number], [place]. tel:[phone] Referring Provider: Maikel Appiah, [address] [place], [address] . tel:[phone] [facility], [address] [address], [place], [id number], [place] tel:[phone] [facility] No Information 4 Jean-Pierre Gruber. [address] [facility], [address], [id number], [place]. tel:[phone] [facility], [address] [address], [place], [id number], [place] tel:[phone] [facility] GI Symptoms or Concerns (chief complaint) Unspecified abdominal painAbdominal pain, unspecified abdominal locationGERD without esophagitisGene ralized postprandial abdominal painEarly satietyEarly satietyRectal polypDiverticul ar diseaseHemorrho ids, unspecified hemorrhoid typeEncounter for screening for malignant neoplasm of colonBenign neoplasm of rectumDvrtclos of lg int w/o perforation or abscess w/o bleedingGeneral ized abdominal painDvrtclos of lg int w/o perforation or abscess w/o bleedingBenign neoplasm of rectum 2 Ezekiel Boydk. [address] [facility], [facility] [address], [place], [id number], [place]. tel:[phone] Referring Provider: Maikel Appiah, [address] [place], [address] . tel:[phone] [facility], [address] [address], [facility], [id number], [place] tel:[phone] [facility] No Information 2 Liset Link. [address] [facility], [address], [id number], [place]. tel:[phone] [facility], [address] [address], [place], [id number], [place] tel:[phone] [facility] Abdominal pain, unspecified abdominal location 1 Trena Finney. [address] [facility], [address], [id number], [place]. tel:[phone] Offic/outpt E&m [facility], [address] [address], [place], [id number], [place] tel:[phone] [facility] GI Symptoms or Concerns (chief complaint) HeartburnEarly satiety 1 Watsnadygel PAC Sharmin. [address] [facility], [address], [id number], [place]. tel:[phone] Referring Provider: Maikel Appiah, [address] [place], [address] . tel:[phone] [facility], [address] [address], [place], [place], [id number], [place] tel:[phone] [facility] No Information Link MD Rashid. [address] [facility], [facility] [address], [place], [place], [id number], [place]. tel:[phone] Family History Family Member Type Diagnosis Age At Onset Father Problem (finding) GERD Father Problem (finding) prostate cancer Mother Problem (finding) gallbladder disease Mother Problem (finding) malignant neop lasm of breast in first degree relative Immunizations Vaccine Date Status Comments SARS-COV-2 (COVID-19) vaccin e, mRNA, spike protein, LNP, preservative free, 50 mcg/0.5 mL dose administered Note: [facility] bi-direct ional interface ; Source: Other Registry SARS-COV-2 (COVID-19) vaccin e, mRNA, spike protein, LNP, preservative free, betsey-sucrose, 30 mcg/0.3 mL dose administered Note: [facility] bi-direct ional interface ; Source: Other Registry Afluria Qd administered Note: M [facility] bi-directional interface ; Source: Other Registry SARS-COV-2 (COVID-19) vaccin e, mRNA, spike protein, LNP, bivalent, preservative free, 30 mcg/0.3 mL dose, betsey-sucrose formulation administered Note: [facility] bi-direct ional interface ; Source: Other Registry Afluria Qd administered Note: M [facility] bi-directional interface ; Source: Other Registry SARS-COV-2 (COVID-19) vaccin e, mRNA, spike protein, LNP, preservative free, 30 mcg/0.3mL dose administered Note: [facility] bi-direct ional interface ; Source: Other Registry Afluria Qd administered Note: M [facility] bi-directional interface ; Source: Other Registry zoster vaccine recombinant administered N ote: [facility] bi-directional interface ; Source: Other Registry zoster vaccine recombinant administered N ote: [facility] bi-directional interface ; Source: Other Registry SARS-COV-2 (COVID-19) vaccin e, mRNA, spike protein, LNP, preservative free, 30 mcg/0.3mL dose administered Note: [facility] bi-direct ional interface ; Source: Other Registry SARS-COV-2 (COVID-19) vaccin e, mRNA, spike protein, LNP, preservative free, 30 mcg/0.3mL dose administered Note: [facility] bi-direct ional interface ; Source: Other Registry Influenza, Madin [place] Canin e Kidney, subunit, quadrivalent, injectable, preservative free administered Note: [facility] bi-directional interface ; Source: Other Registry Influenza, injectable, Madin [place] Canine Kidney, preservative free, quadrivalent administered Note: [place] IC bi- directional interface ; Source: Other Registry Influenza administered Note: [facility] bi-d irectional interface ; Source: Other Registry Influenza administered Note: [facility] bi-d irectional interface ; Source: Other Registry Influenza administered Note: [facility] bi-d irectional interface ; Source: Other Registry Influenza, split virus, trivalent, injectable, contains preservative administered Note: [facility] bi-direct ional interface ; Source: Other Registry Influenza, seasonal, injectable administe red Note: [facility] bi- directional interface ; Source: Other Registry Influenza, split virus, trivalent, injectable, contains preservative administered Note: [facility] bi-direct ional interface ; Source: Other Registry Influenza, seasonal, injectable administe red Note: [facility] bi- directional interface ; Source: Other Registry tetanus toxoid, reduced diphtheria toxoid, and acellular pertussis vaccine, adsorbed administered Note: [facility] b i-directional interface ; Source: Other Registry Influenza, split virus, trivalent, injectable, contains preservative administered Note: [facility] bi-direct ional interface ; Source: Other Registry Influenza, seasonal, injectable administe red Note: [facility] bi- directional interface ; Source: Other Registry Influenza, split virus, trivalent, injectable, contains preservative administered Note: [facility] bi-direct ional interface ; Source: Other Registry Influenza, seasonal, injectable administe red Note: [facility] bi- directional interface ; Source: Other Registry Influenza, split virus, trivalent, injectable, contains preservative administered Note: [facility] bi-direct ional interface ; Source: Other Registry Influenza, seasonal, injectable administe red Note: [facility] bi- directional interface ; Source: Other Registry Influenza, split virus, trivalent, injectable, contains preservative administered Note: [facility] bi-direct ional interface ; Source: Other Registry Influenza, seasonal, injectable administe red Note: [facility] bi- directional interface ; Source: Other Registry Novel [id number], all formulations administered Note: [facility] bi-direct ional interface ; Source: Other Registry rubella virus vaccine administered Note: [facility] bi-directional interface ; Source: Other Registry tetanus and diphtheria toxoi ds, adsorbed, preservative free, for adult use (2 Lf of tetanus toxoid and 2 Lf of diphtheria toxoid) administered Note: [facility] bi-direct ional interface ; Source: Other Registry Payers Payer name Insurance type Covered libertarian ID Quincy cramer(s) [facility] [id number] Social History Type Description Quantity Date Captured Comments Alcohol Use Details Unknown Caffeine Use Details Unknown Tobacco Use Status No Information Smoking Status No Information Sex Female Chief Complaint And Reason For Visit No Information Reason For Referral Reason For Referral No Information Plan Of Treatment Date Type Action Status Referral Ordered: EGD Appointment date/timeframe: 07/19/2021 ordered Referral Ordered: Colonoscopy Appointment date/timeframe: 07/19/2021 ordered Appointment Daisy Brooks BOOKED History Of Present Illness Encounter Date Complaint History Of Prese nt Illness GI Symptoms or Concerns Patient is a very pleasant 55-year-old woman with a past medical history significant for GERD, diverticulosis, obesity. She presents for evaluation of abdominal pain.Patient notes that her heartburn symptoms have been under good control of late. About a year ago however she began having episodes of midepigastric bloating/fullness that would awaken her from sleep. This would come on in the middle of the night, radiating to her back rarely, and lasting for up to 2 hours. Over the past several weeks the tempo of these has accelerated, happening every 2 to 3 days. She does not find any correlation other than time of day for when the symptoms start. She has tried Pepcid, Tums, Gaviscon, Advil, heating pads to no avail. With her most recent episodes she has had nausea and emesis. Today she has poor appetite, but minimal pain. No heartburn symptoms, dysphagia, dysphonia. No significant NSAID use of late. No melena or hematochezia. No jaundice or scleral icterus. No dark urine. No previous abdominal surgeries. GI Symptoms or Concerns GI Symptoms or Concerns Daisy Barbour is a 51-year-old female with a history of iron deficiency, anxiety, depression, GERD, and obesity who presents to clinic for consultation at the request of her primary care provider, Maikel Ulloa regarding heartburn.The patient reports a longstanding history of heartburn, which has been going on for approximately 10 years. Off of medication, she will get daily episodes of retrosternal burning, which can occur throughout the day and with or without eating. She also notes that she needs to sleep, sitting up or else she will get significant heartburn symptoms at night. She has been taking esomeprazole for many years 20 mg at bedtime with good relief of her symptoms. She is concerned about being on those medications long-term, however.She did undergo a colonoscopy in 2019. Unfortunately, she did vomit a large amount of fluid during the procedure and it had to be aborted. The cecum was reached, but they were unable to perform a complete exam for detection of p Functional Status Date Functional Assessmen t No Information Instructions Date Instruction Additional Infor marine Colon Cancer Prevention Related to Rectal polyp Colon Polyps Related to Recta l polyp High Fiber Diet Related to Recta l polyp Diverticulosis/Diverticulitis Re lated to Rectal polyp Hemorrhoids (External) Related t o Rectal polyp Hemorrhoids (Internal) Related t o Rectal polyp Assessments Type Assessment Date No Information Patient Care Teams Name Effective Dates (start - stop) Status Members No Information
--- OUTSIDE RECORDS SUMMARY | 2025-04-07 02:43 | XMS_ITS | Continuity of Care Document ---
Author Organization [facility] Address [address] [address] [place] [address] Phone Care Team Providers Care Laundry Tub Maker Name Role Phone Mihai Vasquez MD Unavailable [...] Diagnoses Date Provider Providers Copied on Encounter [facility], [address] [address], [place], [id number], [place] tel:[phone] [facility] No Information 5 Christina Holm. [address], [id number], [place]. tel:[phone] Offic/outpt E&m Estab Moderate [facility], [address] [address], [place], [id number], [place] tel:[phone] [facility] GI Symptoms or Concerns (chief complaint) Epigastric painNausea and vomiting, unspecified vomiting type 5 Christina Holm. [address] [place] [address], [id number], [place]. tel:[phone] Referring Provider: Referral Self, USE FOR SELF REFERRALS. [facility], [address] [address], [place], [id number], [place] tel:[phone] [facility] No Information 5 Michael Hernandez. [address] [facility], [address], [id number], [place]. tel:[phone] Referring Provider: Maikel Appiah, [address] [place], [address] . tel:[phone] [facility], [address] [address], [place], [id number], [place] tel:[phone] [facility] No Information 4 Jean-Pierre Gruber. [address] [facility], [address], [id number], [place]. tel:[phone] [facility], [address] [address], [place], [id number], [place] tel:[phone] [facility] GI Symptoms or Concerns (chief [...] neoplasm of rectum 2 Ezekiel Boydk. [address] [facility], [facility] [address], [place], [id number], [place]. tel:[phone] Referring Provider: Maikel Appiah, [address] [place], [address] . tel:[phone] [facility], [address] [address], [facility], [id number], [place] tel:[phone] [facility] No Information 2 Liset Link. [address] [facility], [address], [id number], [place]. tel:[phone] [facility], [address] [address], [place], [id number], [place] tel:[phone] [facility] Abdominal pain, unspecified abdominal location 1 Trena Finney. [address] [facility], [address], [id number], [place]. tel:[phone] Offic/outpt E&m [facility], [address] [address], [place], [id number], [place] tel:[phone] [facility] GI Symptoms or Concerns (chief complaint) HeartburnEarly satiety 1 Watsandygel PAC Sharmin. [address] [facility], [address], [id number], [place]. tel:[phone] Referring Provider: Maikel Appiah, [address] [place], [address] . tel:[phone] [facility], [address] [address], [place], [place], [id number], [place] tel:[phone] [facility] No Information Link MD Rashid. [address] [facility], [facility] [address], [place], [place], [id number], [place]. tel:[phone] Family History Family Member Type Diagnosis Age [...] interface ; Source: Other Registry Influenza, Madin [place] Canin e Kidney, subunit, quadrivalent, injectable, preservative free administered Note: [facility] bi-directional interface ; Source: Other Registry Influenza, injectable, Madin [place] Canine Kidney, preservative free, quadrivalent administered Note: [place] IC bi- directional interface ; Source: Other [...] directional interface ; Source: Other Registry Novel [id number], all formulations administered Note: [facility] bi-direct ional [...] Insurance type Covered libertarian ID Quincy cramer(s) [facility] [id number] Social History Type Description Quantity Date Captured [...]
--- OUTSIDE RECORDS SUMMARY | 2025-04-07 21:35 | XMS_ITS | Clinical Summary ---
Author Organization [facility] Address [address] [place] [address] Care Team Providers Care Manager Marketing Sales Name Role Phone Maikel Ulloa Primary Care Provider [phone] Allergies No known active allergies Medications Esomeprazole Magnesium 20 mg grps 1 Active hydrOXYzine HCL (ATARAX) 10 mg tabletIndicatio ns:Depression with anxiety Take 1-2 Tablets (10-20 mg) by mouth every 8 hours if needed for Anxiety. 25 Tablet 2 3 Active CPAPIndications :JON (obstructive sleep apnea) CPAP (E0601) machine for home use at pressure: 5-16 , Choice of mask (A7030 or A7034) w/full face cushion (A7031) x1/mo, nasal cushion (A7032) x2/mo, or nasal pillows (A7033) x 2/mo; Length of Need: 99 months; Frequency of use: Daily 1 Each 11 4 Active tiZANidine (ZANAFLEX) 4 mg tabletIndicatio ns:Migraine syndrome Take 1 Tablet (4 mg) by mouth every 6 hours if needed for Muscle Spasm. 90 Tablet 1 4 Active sertraline (ZOLOFT) 50 mg tabletIndicatio ns:Depression with anxiety Take 1 Tablet (50 mg) by mouth once daily in the morning. 90 Tablet 3 4 Active cholecalciferol , Vitamin D3, (Vitamin D-3) 5,000 unit tab tabletIndicatio ns:Vitamin D deficiency Take 1 Tablet (5,000 units) by mouth once daily. 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 Diverticular disease of large intestine 09/21/19 Hemorrhoids 09/20/2021 Chronic GERD 10/12/2018 IGT (impaired glucose tolerance) 03/29/2013 Depression with anxiety 12/20/2010 Obese 12/20/2010 Resolved Problems Problem Noted Date Diagnosed Date Resolved Date Hot flashes 05/26/2016 06/07/2024 Unspecified examination 04/14/201309/2023 Overview (11/02/2018): mammo , 10/22 Anemia 12/23/2010 10/08/2018 Routine health maintenance 12/20/2010 1 08/08/2023 Immunizations Immunization Administration Dates Next Due COVID-19 VACCINE SPIKEVAX (M ODERNA 50MCG/0.5ML) 12YO+ PFS 06/08/2024 COVID-19 vaccine (ClearEdge3D NTech 30mcg/0.3mL) 12YO+ BIVALENT PF, MDV 06/13/2022 COVID-19 vaccine (ClearEdge3D NTech 30mcg/0.3mL) PF, MDV 06/10/2021,10/31/2020,10/10/2020 INFLUENZA, IIV3 PF (AGE >= 6 MO) 06/08/2024 Influenza A (H1N1), Inactivated 07/11/2009 Influenza, IIV3 [...] Packs/Day Years Used Date Smoking Tobacco: Never Passive Smoke Exposure: Past Smokeless Tobacco: Never Tobacco Cessation:Counseling Given: Not Answered Alcohol Use Standard Drinks/Week Comments Yes 1 (1 standard drink = 0.6 oz pur e alcohol) 1-2 a week PHQ-2 Answer Date Recorded PHQ-2 TOTAL SCORE 0 06/08/2024 Social Connections Answer Date Recorded Do you often feel lonely or isolated from those around you? 0 09/16/2024 Financial Resource Strain Answer Date R ecorded Difficulty of Paying Living Expenses 3 09/16/2024 Difficulty of Paying Living Expenses Not on file 09/16/2024 Food Insecurity Answer Date Recorded Do you worry your food will run out before you are able to buy more? 1 09/16/2024 Transportation Needs Answer Date Record ed Does lack of transportation keep you from medica l appointments? 1 09/16/2024 Does lack of transportation keep you from work, meetings or getting things that you need? 1 09/16/2024 Housing Stability Answer Date Recorded What is your housing situation today? 1 09/16/2024 Utilities Answer Date Recorded Do you have trouble paying f or utilities (for example, heat, electricity, water, phone)? 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 Not on file Not on file Obstetrics History Last Filed Vital Signs Vital Sign Reading Time Taken Comments Blood Pressure 137/80 09/16/2024 4:19 PM CDT Pulse 86 09/16/2024 4:19 PM CDT Temperature 36.9 C (98.4 F) 06/07/2024 12:13 PM [employer]ACH Respiratory Rate 16 02/02/2019 4:46 PM CDT Oxygen Saturation 95% 09/16/2024 4:19 PM CDT Inhaled Oxygen Concentration - - Weight 103.4 kg (228 lb) 09/16/2024 4:19 PM CDT Height 162.4 cm (5' 3.94) 09/16/2024 4:19 PM CD T Body Mass Index 39.21 09/16/2024 4:19 PM CDT Plan of Treatment Health Maintenance Due Date Last Done Comments HIV for age 15-65 12/31/1982 Hepatitis C screening for ag e 18-79 12/31/1985 Hepatitis B series for 19+ ( 1 of 3 - 19+ 3-dose series) 12/31/1986 Pneumococcal series for age 50+ (1 of 1 - PCV) 12/31/2017 Tetanus booster 05/26/2024 05/26/2014, 08/2003, 06/06/2004 Colonoscopy through age 75 09/20/2024 09/20/2021, Influenza Vaccine (#1) 2025 , 05/11/2023, 04/17/2022, Additional history exists Depression screening for age 12+ 06/08/2025 06/08/2024, 06/18/2023, 06/16/2023, Additional history exists BMI (ht and wt on same day) for age 18+ 09/16/2025 09/16/2024, 06/08/2024, 06/07/2024, Additional history exists Mammogram for age 45-75 10/24/2025 10/25/19 25, 08/17/2023, 06/18/2022, Additional history exists Pap test for age 21-65 01/22/2026 , 01/22/2021, 05/26/2016, Additional history exists Lipids for age 45-75 06/08/2029 06/08/2024, 10/01/2023, 06/16/2023, Additional history exists RSV vaccine for adults or (1 - 1-dose 75+ series) 12/31/2042 Zoster (shingles) series for age 50+ Completed 05/03/2021, 02/01/2021 COVID-19 vaccine series Completed 06/08/20, 05/15/2023, 06/13/2022, Additional history exists Procedures Procedure Name Priority Date/Time Associated Diagnosis Comments XR MAMMO SARA BILAT SCREEN Routine 10/24/2024 12:32 PM CDT Encounter for screening for malignant neoplasm of breast LIPID PANEL W REFLEX MEASURED LDL Routine 06/08/2024 10:01 AM [employer]ACH Screening for cholesterol level SCAN-COLONOSCOPY 09/20/2021 9:00 AM CDT FINANCIAL REPORTING ANALYST THIN PREP PAP SCREEN IMAGED Routine 01/22/2021 8:10 AM CDT Pap smear for cervical cancer screening from Last 3 Months or Most Recently Relevant to Health Maintenance Results * XR MAMMO SARA BILAT SCREEN (10/24/2024 12:32 PM CDT) Anatomical Region Laterality Modality BREASTS, Breast Left, Breast Right Bilateral Mammography Impressions 10/24/2024 12:38 PM CDT There is no radiographic evidence for malignancy. Recommend annual mammograms. MAMMOGRAM ASSESSMENT: ACR 1 Negative PATIENTS: You will also receive a letter with your examination results in an easy to read format. If you have questions about your results, please contact your referring provider. Narrative 10/24/2024 12:38 PM CDT For Patients: As a result of the 21st Century Cures Act, medical imaging exams and procedure reports are released immediately into your electronic medical record. You may view this report before your referring provider. If you have questions, please contact your health care provider. XR MAMMO SARA BILAT SCREEN [[id number]] CLINICAL HISTORY: This is an asymptomatic 54 y.o. patient. INDICATION FOR EXAM: Mammogram Screening. TECHNIQUE: CC and MLO views were obtained. This study was evaluated with the assistance of Computer-Aided Detection. Breast Tomosynthesis was used in interpretation. COMPARISON FILM: Yes 08/17/23 [employer] 06/18/22 [facility] FINDINGS: There are scattered areas of fibroglandular density. There are no dominant masses, suspicious micro calcifications or areas of architectural distortion. Maikel BAILON MAMMO Final Resul t * (ABNORMAL) LIPID PANEL W REFLEX MEASURED LDL (06/08/2024 10:01 AM [employer] COACH) CHOLESTEROL, TOTAL 200(H) <200 mg/dL [facility] HDL CHOLESTEROL 47(L) > OR = 50 mg/dL [facility] TRIGLYCERIDES 161(H) <150 mg/dL [facility] LDL-CHOLESTEROL 125(H) mg/dL (calc) [facility] Comment: Reference range: <100 Desirable range <100 mg/dL for primary prevention; <70 mg/dL for patients with CHD or diabetic patients with > or = 2 CHD risk factors. LDL-C is now calculated using the Tavo-Blayne calculation, which is a validated novel method providing better accuracy than the Friedewald equation in the estimation of LDL-C. Tavo CORONA et al. BIENVENIDO. 2013;310(19): 7008-4174 (http://education.[employer].GradeStack/faq/VKH259) CHOL/HDLC RATIO 4.3 <5.0 (calc) [facility] NON HDL CHOLESTEROL 153(H) <130 mg/dL (calc) [facility] Comment: For patients with diabetes plus 1 major ASCVD risk factor, treating to a non-HDL-C goal of <100 mg/dL (LDL-C of <70 mg/dL) is considered a therapeutic option. Blood BLOOD SPECIMEN / Unknown 06/08/2024 10:01 AM [employer] COACH 06/08/2024 10:03 AM [employer]ACH Narrative [facility] - 06/09/2024 4:14 AM [employer] COACH FASTING:YES FASTING: YES Maikel BAILON CHEMISTRY Final Resul t [facility] [address] [address], [facility] [address] * SCAN-COLONOSCOPY (09/20/2021 9:00 AM CDT) Narrative Procedure Note Haris Falcno DO - 09/20/2021 8:16 AM CDT [facility] [facility], [address], [place] [address] Patient Name: Daisy Brooks Gender: Female Exam Date: 09/20/2021 Visit Number: [id number] Age: 51 Years Date of : 1970 Attending MD: Haris Falcon DO Medical Record#: [id number] Procedure: Colonoscopy Indications: Colorectal cancer screening Previous [...] polyp Diverticular disease Hemorrhoids, unspecified hemorrhoid type MD impression comments: As with the previous exam, the patient was notedto be prone to retching/coughing during colonoscopy. Thankfully, therewas no serjio emesis during these procedures. Preliminary Plan: Recommendation Comments: 1. Await biopsy results. 2. Further endoscopic procedures should be scheduled in the hospital, lowthreshold for intubation/airway protection. Procedure: Upper GI Endoscopy Indications: Abdominal Pain Early satiety GERD Provider: Haris Falcon DO Referring MD: Maikel DOE Primary MD: Maikel DOE Medications: Admitting Medication: 0.9% Normal Saline at O Ondansetron Hydrochloride (Zofran) given 4mg by IV [...] esophagitis Generalized postprandial abdominal pain Early satiety Impression Comments: Gastric emptying study from 04/2021 [...] of the colorectum is defined by the [place] Collegeof Gastro[employer]ology (ACG) as an adenoma that is 1 cm or more in size,contains an appreciable villous component, or has high grade dysplasia(David RIVERS; Polyp Guideline: Diagnosis, Treatment, and Surveillance forPatients with Colorectal Polyps. Am J [id number];95(11):5147-1422). This polyp qualifies as such. Patients withadvanced adenomas are at increased risk for synchronous and metachronousadditional advanced adenomas. Appropriate follow-up is suggested. MICROSCOPIC A: Performed B: Performed C: Performed Electronically signed by: Deann Mar[place] [address] Orders Instruction(s)/Education: Instruction/Education Timeframe Assessment Colon Cancer [...] Maikel Ulloa PAC cc: Maikel Ulloa PAC us Haris Falcon DO OTHER Final Resul t * FINANCIAL REPORTING ANALYST THIN PREP PAP SCREEN IMAGED (01/22/2021 8:10 AM CDT) Case Report Gynecologic Cytology Report Case: [id number] Authorizing Provider: Maikel Ulloa PA Collected: 01/22/2021 0810 Ordering Location: [facility] Received: 01/22/2021 0823 Clinic First Screen: Tiff Holloway Specimen: FINANCIAL REPORTING ANALYST ThinPrep Vial Screening, Cervical 01/31/2021 10:48 AM CDT [facility] INTERPRETATION/ RESULT NEGATIVE FOR INTRAEPITHELIAL LESION OR MALIGNANCY (NIL) (none) 01/31/2021 10:48 AM CDT [facility] at 1048 CDT SPECIMEN ADEQUACY Satisfactory for evaluation Endocervical component present 01/31/2021 10:48 AM CDT [facility] HPV REQUEST HPV and PAP 01/31/2021 10:48 AM CDT [facility] Date of LMP unknown 01/31/2021 10:48 AM CDT [facility] Last Pap Date 05/26/16 01/31/2021 10:48 AM CDT [facility] Last Pap Result NIL 10:48 AM CDT [facility] Abnormal Pap or Waldo Bx in last 5 years No 01/31/2021 10:48 AM CDT [facility] Menstrual Status Postmenopausal 01/31/2021 10:48 AM CDT [facility] Waldo Bx Done Today No 01/31/2021 10:48 AM CDT [facility] Additional Information None given 01/31/2021 10:48 AM CDT [facility] Comment: Cytology is screened at [email or web address] - [address], [place] [address] and [facility] - [address], [place] [address] and [facility] - [address] [place] [address] Interpreted at [facility] - [address] [place] [address] Automated Review Successful 01/31/2021 10:48 AM CDT [facility] Comment:Specimen processed s uccessfully by automated irrigating pump operator device, ThinPrep Imaging System, [employer] ANCILLARY TESTING FINANCIAL REPORTING ANALYST HPV Ordered, Please see separate report 01/31/2021 10:48 AM CDT [facility] Note The pap test is a [...] and malignant lesions. 01/31/2021 10:48 AM CDT [facility] Other (Cervical) Non-Blood / Unknown 01/22/2021 8:10 AM CDT 01/22/2021 8:23 AM CDT us Maikel BAILON PATHOLOGY/CYTOLOGY Final Re sult [facility] [address] [place] [address], [place] from Last 3 Months or Most Recently Relevant to [place] [id number] [place] Member Subscriber Plan / Payer (Ef fective 2024-Present) Name:Daisy Brooks Member ID:-[id number] Relation to Subscriber:Employee Name:[employer] Subscriber ID:-[id number] Date of :2002 (Home) Address: [address] [place] [address] Payer ID:Not on file Group ID:Not on file Type:Not on file Address: [address] [place] [address] Advance Directives * Full Code (Latest Code Status on File) Date Activated Date Inactivated Comments 10/18/2018 9:47 AM 10/18/2018 3:16 PM Care Teams Manager Marketing Sales Relationship Specialty Start [place] [address] [place], [place] [id number] PCP - General Physician Machine Bender 01/14/21
--- OUTSIDE RECORDS SUMMARY | 2025-04-07 21:35 | XMS_ITS | Clinical Summary ---
Author Organization [facility] Address [address] [place] [address]. [place] [address] Care Team Providers Care Certified Orthotic Fitter Name Role Phone Jackie Greenberg PA-C Primary Care Provider [phone] Allergies No known active allergies Medications sertraline (ZOLOFT) 50 MG tablet Take 50 mg by mouth daily. 4 Active esomeprazole (NEXIUM) [address] capsule Take 20 mg by mouth every morning (before breakfast). Active tiZANidine (ZANAFLEX) 4 MG tablet Take 4 mg by mouth. 4 Active hydrOXYzine HCl (ATARAX) 10 MG tablet Take 10-20 mg by mouth every 8 hours as needed. 3 Active PERMETHRIN EX CPAP (E0601) machine for home use at pressure: 5-16 , Choice of mask (A7030 or A7034) w/full face cushion (A7031) x1/mo, nasal cushion (A7032) x2/mo, or nasal pillows (A7033) x 2/mo; Length of Need: 99 months; Frequency of use: Daily 4 Active cholecalciferol (VITAMIN D3) 25 mcg (1000 units) capsule Take 1 capsule by mouth daily. 5000IU Active Social History Tobacco Use Types Packs/Day Years Used Date Smoking Tobacco: Never Smokeless Tobacco: Never Tobacco Cessation:Counseling Given: Not Answered Adolescent Education Answer Date Record ed Getting School Help Needed Not on file 04/12 Interpersonal Safety Answer Date Record ed Do you feel physically and e motionally safe where you currently live? Yes 09/22/2024 Within the past 12 months, h ave you been hit, slapped, kicked or otherwise physically hurt by someone? No 09/22/2024 Within the past 12 months, h ave you been humiliated or emotionally abused in other ways by your partner or ex-partner? No 09/22/2024 Comments Unknown Sex and Gender Information Value Date Recorded Sex Assigned at Female 04/30/2021 7:14 PM CDT Legal Sex Female 3:18 AM LEGEND MAKER Gender Identity Female 04/30/2021 7:14 PM CDT Sexual Orientation Straight 04/30/2021 7: 14 PM CDT Last Filed Vital Signs Vital Sign Reading Time Taken Comments Blood Pressure 126/82 09/22/2024 9:30 AM CDT Pulse 69 09/22/2024 9:00 AM CDT Temperature 36.6 C (97.8 F) 09/22/2024 9:30 AM CDT Respiratory Rate 14 09/22/2024 9:30 AM CDT Oxygen Saturation 98% 09/22/2024 9:30 AM CDT Inhaled Oxygen Concentration - - Weight 103.1 kg (227 lb 3.2 oz) 09/22/2024 6:18 AM CDT Height 162.6 cm (5' 4) 09/21/2024 9:00 AM CDT Body Mass Index 39 09/21/2024 9:00 AM CDT Plan of Treatment Health Maintenance Due Date Last Done Comments ADVANCE CARE PLANNING 1970 ANNUAL REVIEW OF HM ORDERS 1968 CT COLONOGRAPHY 1968 FIT 1970 FLEX SIG 1970 sDNA (Cologuard) 1970 HIV SCREENING 12/31/1982 HEPATITIS C SCREENING 12/31/1985 HEPATITIS B VACCINE (1 of 3 - 19+ 3-dose series) 12/31/1986 LIPID 2008 PNEUMOCOCCAL VACCINE 50+ YEARS (1 of 1 - PCV) 12/31/2017 DIABETES SCREENING 07/01/2022 07/01/2019, 07/31/2014 PAP 01/23/2024 01/22/2021 DTAP/TDAP/TD VACCINE (2 - Td or Tdap) 05/26/2024 05/26/2014, 06/06/2004 PHQ-2 (once per calendar year) 2024 INFLUENZA VACCINE (#1) 2025 4, 05/11/2023, 04/17/2022, Additional history exists COLONOSCOPY 03/25/2025 09/22/2024, 09/04, 09/20/2021 COLORECTAL CANCER SCREENING 03/25/2025 YEARLY PREVENTIVE VISIT 06/08/2025 06/08/20 24, 06/16/2023, 04/17/2022, Additional history exists MAMMO SCREENING 08/17/2025 08/17/2023, 08/06, 06/18/2022, Additional history exists ZOSTER VACCINE Completed 05/03/2021, 02/01/2021 COVID-19 VACCINE Completed 06/08/2024, 04/2023, 06/13/2022, Additional history exists HPV VACCINE (No Doses Required) Completed MENINGITIS VACCINE Aged Out No longer eligible based on patient's age to complete this topic Procedures Procedure Name Priority Date/Time Associated Diagnosis Comments COLONOSCOPY Routine 09/22/2024 7:34 AM CDT BASIC METABOLIC PANEL STAT 07/01/2019 9:25 PM LEGEND MAKER from Last 3 Months or Most Recently Relevant to Health Maintenance Results * COLONOSCOPY (09/22/2024 7:34 AM CDT) [facility] Patient Name: Daisy Brooks Procedure Date: 09/22/2024 7:34 AM Date of : 1970 Admit Type: Outpatient Age: 54 Gender: Female Attending MD: DAVID ARIAS MD, Total Sedation Time: MAC sedation Instrument Name: 257 - Pediatric Colonoscope Procedure: Colonoscopy Indications: High risk colon cancer surveillance: Personal history of colonic polyps Providers: DAVID ARIAS MD (Doctor) Referring MD: JACKIE GREENBERG MD (Referring MD) Medicines: Monitored Anesthesia Care Complications: No immediate complications. Procedure: Pre-Anesthesia Assessment: - Prior to the procedure, a History and Physical was performed, and patient medications and allergies were reviewed. The patient is competent. The risks and benefits of the procedure and the sedation options and risks were discussed with the patient. All questions were answered and informed consent was obtained. Patient identification and proposed procedure were verified by the physician, the nurse and the crime scene specialist in the procedure room. Mental Status Examination: alert and oriented. After reviewing the risks and benefits, the patient was deemed in satisfactory condition to undergo the procedure. The anesthesia plan was to use monitored anesthesia care (MAC). Immediately prior to administration of medications, the patient was re-assessed for adequacy to receive sedatives. The heart rate, respiratory rate, oxygen saturations, blood pressure, adequacy of pulmonary ventilation, and response to care were monitored throughout the procedure. The physical status of the patient was re-assessed after the procedure. After obtaining informed consent, the colonoscope was passed under direct vision. Throughout the procedure, the patient's blood pressure, pulse, and oxygen saturations were monitored continuously. The Olympus Pediatric Colonoscope Model # [id number]-FI816K, [facility] # [id number] was introduced through the anus and advanced to the cecum, identified by appendiceal orifice and ileocecal valve. The colonoscopy was performed without difficulty. The patient tolerated the procedure fairly well. The quality of the bowel preparation was good. The ileocecal valve, appendiceal orifice, and rectum were photographed. Findings: Multiple diverticula were found in the sigmoid colon and descending colon. A 15 mm post polypectomy scar was found in the rectum (at 15 cm). There was residual polyp tissue. Some of the polyp was removed with a cold snare. Polyp resection was incomplete. The resected tissue was retrieved. Coagulation for tissue destruction using argon plasma was successful. The exam was otherwise normal throughout the examined colon. No additional abnormalities were found on retroflexion. Impression: - Diverticulosis in the sigmoid colon and in the descending colon. - Post-polypectomy scar in the rectum (at 15 cm). Some polyp was removed with cold snare. Treated with argon plasma coagulation (APC). - The exam was otherwise normal to the cecum. Recommendation: - Flexible sigmoidoscopy in 6 months to reassess polypectomy site. Procedure Code(s): --- Professional --- 81365, Colonoscopy, flexible; with ablation of tumor(s), polyp(s), or other lesion(s) (includes pre- and post-dilation and guide wire passage, when performed) CPT copyright 2021 [employer]. All rights reserved. The codes documented in this report are preliminary and upon liquor department manager review may be revised to meet current compliance requirements. Electronically signed by David Arias MD DAVID ARIAS MD 09/22/2024 8:45:56 AM I was physically present for the entire viewing portion of the exam. DAVID ARIAS MD Number of Addenda: 0 Note Initiated On: 09/22/2024 7:34 AM Procedure Date: 09/22/2024 7:34:56 AM Scope Withdrawal Time: 0 hours 22 minutes 57 seconds Total Procedure Duration: 0 hours 28 minutes 58 seconds Estimated Blood Loss: Scope In: 8:04:14 AM Scope Out: 8:33:12 AM RADIOLOGY RESULTS 09/22/2024 7:34 AM CDT us Jackie Greenberg PA-C PROCEDURES Final Result RADIOLOGY RESULTS * (ABNORMAL) Basic metabolic panel (07/01/2019 9:25 PM LEGEND MAKER) Sodium 138 133 - 144 mmol/L 07/01/2019 9:49 PM [facility] Potassium 3.7 3.4 - 5.3 mmol/L 07/01/2019 9:49 PM [facility] Chloride 106 94 - 109 mmol/L 07/01/2019 9:49 PM [facility] Carbon Dioxide 28 20 - 32 mmol/L 07/01/2019 9:55 PM [facility] Anion Gap 4 3 - 14 mmol/L 07/01/2019 9:55 PM [facility] Glucose 116(H) 70 - 99 mg/dL 07/01/2019 9:55 PM [facility] Urea Nitrogen 7 7 - 30 mg/dL 07/01/2019 9:55 PM [facility] Creatinine 0.80 0.52 - 1.04 mg/dL 07/01/2019 9:55 PM [facility] GFR Estimate 85 >60 mL/min/{1. 73_m2} 07/01/2019 9:55 PM [facility] Comment: Non GFR Calc Starting 06/22/2018, serum creatinine based estimated GFR (eGFR) will be calculated using the Chronic Kidney Disease Epidemiology Collaboration (CKD-EPI) equation. GFR Estimate If Black >90 >60 mL/min/{1. 73_m2} 07/01/2019 9:55 PM [facility] Comment: GFR Calc Starting 06/22/2018, serum creatinine based estimated GFR (eGFR) will be calculated using the Chronic Kidney Disease Epidemiology Collaboration (CKD-EPI) equation. Calcium 9.2 8.5 - 10.1 mg/dL 07/01/2019 9:55 PM [facility] Blood specimen (specimen) 07/01/2019 9:25 PM LEGEND MAKER 07/01/2019 9:34 PM LEGEND MAKER us Stephane Blanchard MD LAB - BLOOD ORDERABLES Final Result [facility] [address] [place] [address], [facility] [phone] from Last 3 Months or Most Recently Relevant to Health Maintenance Insurance [employer] Care Teams Certified Orthotic Fitter Relationship Specialty Start Date End Date Jackie Greenberg PA-C [facility] [address] [place] [address] PCP - General Family Medicine 08/25/24
--- OUTSIDE RECORDS SUMMARY | 2025-04-07 21:35 | XMS_ITS | Encounter Summary ---
Author Organization [facility] Address [address] [place] [id number] Care Team Providers Care Visual Display Associate Name Role Phone Juan José Doherty MD Primary Care Provider [phone] Maikel Ulloa PA-C Primary Care Provider [phone] Encounter Details Date Type Department Care Team (Late st Contact Info) Description 07/31/[address], [address] [place] [address] [facility] Social History Tobacco Use Types Packs/Day Years Used Date Smoking Tobacco: Never Assessed Comments Unknown Sex and Gender Information Value Date Recorded Sex Assigned at Female 04/30/2021 7:14 PM CDT Legal Sex Female 3:18 AM CUSTOMS CONSULTANT Gender Identity Female 04/30/2021 7:14 PM CDT Sexual Orientation Straight 04/30/2021 7: 14 PM CDT documented as of this encounter Plan of Treatment Not on file documented as of this encounter Visit Diagnoses Not on filedocumented in this encounter Care Teams Visual Display Associate Relationship Specialty Start Date End Date Juan José Doherty MD [facility] [address] [place] [address] PCP - General Family Practice 07/01/19 08/24/24 Maikel Ulloa PA-C [facility] [address] [place] [address] PCP - General Family Medicine 08/25/24 documented as of this encounter
--- NOTE | 2025-04-07 21:51 | CRLHL7_ITS ---
For Patients: As a result of the Century Cures Act, medical imaging exams and procedure reports are released immediately into your electronic medical record. You may view this report before your referring provider. If you have questions, please contact your health care provider. INDICATION: Right upper quadrant abdomen pain. TECHNIQUE: Ultrasound abdomen limited. Sonographic images of the right upper quadrant were obtained using shabazz-scale and color Doppler images. COMPARISON: None. FINDINGS: Liver: Diffusely increased hepatic echogenicity. Increased in size as well measuring 19.6 cm in length. No suspicious masses. No intrahepatic biliary dilatation. Gallbladder: Cholelithiasis and biliary sludge. Mural thickening measuring 5 mm. Probable pericholecystic fluid. Negative sonographic Chanel`s sign. Common bile duct: Non-dilated, measuring 6 mm. Pancreas: Unremarkable. Right kidney: Normal in size. Normal echotexture and cortex. No suspicious masses, stones, or hydronephrosis. Vasculature: Proximal abdominal aorta and IVC are unremarkable. IMPRESSION: 1. Cholelithiasis and biliary sludge with gallbladder wall thickening and probable pericholecystic fluid. Despite a negative sonographic Chanel`s sign, findings could represent acute cholecystitis in the correct clinical setting. 2. Hepatomegaly with hepatic steatosis. Dictated by Eliseo Quesada MD @ 04/07/2025 11:13:39 PM (Electronically Signed)
[2025-04-07 21:52] VITALS: BP 161/101; PULSE 71; RESP 16; TEMP 36.6; O2SAT 96; BMI 38.6
[2025-04-07 21:59] LABS: Appearance Urine Clear (Clear)
--- NOTE | 2025-04-07 22:10 | ED.ABDPAIN ---
HPI - Abdominal Pain General Time Seen by Provider: 22:30 Date Seen: 04/07/25 Chief Complaint: Abdominal Pain Stated Complaint: upper abdominal pain Time Seen by Provider: 04/07/25 22:07 Source: patient, family and RN notes reviewed Mode of arrival: ambulatory Limitations: no limitations History of Present Illness HPI narrative: This 55-year-old female is coming in with complaint gallbladder attack. She reportedly had a gallbladder ultrasound at [facility] today which we have no way to obtain. She is reporting pain. The client services account manager was here and ready to leave, nursing staff appropriately ass to have the ultrasound done which I absolutely agree with. Patient is seen after her ultrasound. The client services account manager is seen stones, thickened gallbladder wall that is concerning for cholecystitis. Patient reports that for maybe the last year she has had some episodic right upper quadrant abdominal pain episodes. Initially they were solitary, would maybe last couple hours. She initially just thought it was gas. For just about 2 weeks now, she notes the episodes are coming more frequently, this is her 5th episode. She had an ultrasound done earlier today, 8 . Then it dinner just had a small sandwich. She started to notice epigastric pain. She was seen at [facility] on April 05. She had normal labs. These episodes usually will last 2-3 hours, she finds pacing and getting up and moving is the best that she can do. Initially early on, did try ibuprofen and did not help at all. She has also tried Pepcid, Tums, Gaviscon, Advil and heating pad without much help. She has had some nausea and emesis with some of her recent episodes. Appetite has been diminished. She does have a history of GERD but has not really had heartburn symptoms with this. She has had a history of diverticulosis but no diverticulitis. She had a root canal about 2 weeks ago, did have maybe a low-grade fever associated with that, had no abdominal symptoms at that time. She has not noted any fevers or chills within the last few days. She admits that her pain is improving at this time. She denies any other prior abdominal surgery. Related Data Home Medications ?Medication ?Instructions ?Recorded ?Confirmed esomeprazole magnesium 20 mg 20 mg PO DAILY 05/05/24 04/07/25 capsule,delayed release hydroxyzine HCl 10 mg tablet 10 mg PO Q8H PRN 05/05/24 05/23/24 sertraline 50 mg tablet (Zoloft) 50 mg PO DAILY 05/05/24 04/07/25 tizanidine 4 mg capsule 4 mg PO Q6H PRN 05/05/24 04/07/25 acetaminophen 500 mg tablet 1,000 mg PO Q6H PRN 05/09/24 05/23/24 (Tylenol Extra Strength) Previous Rx's ?Medication ?Instructions ?Recorded celecoxib 100 mg capsule 100 mg PO BID PRN pain #30 caps 05/10/24 Allergies Allergy/AdvReac Type Severity Reaction Status Date / Time No Known Drug Allergies Allergy Verified 04/07/25 21:56 Review of Systems Status of ROS Reports: 6 or more systems reviewed and unremarkable except as noted in History and below [facility] Medical History Anxiety ?F41.9 - Anxiety disorder, unspecified (ICD-10) Depression ?F32.A - Depression, unspecified (ICD-10) Sleep apnea ?G47.30 - Sleep apnea, unspecified (ICD-10) Acid reflux ?K21.9 - Gastro-esophageal reflux disease without esophagitis (ICD-10) Social History Smoking Status: Never smoker How often do you have a drink containing alcohol: never AUDIT-C Alcohol total score: 0 Non-prescribed substance use: denies use Exam Const: Vital Signs, click to edit/add: Vital Signs - 24 hr 04/07/25 21:52 04/07/25 22:45 04/07/25 22:45 Temperature 97.9 F Pulse Rate [Pulse Oximeter] 71 74 Respiratory Rate 16 16 Blood Pressure [Ri ght Upper Arm] 161/101 H 142/91 H Pulse Oximetry 96 99 98 Oxygen Delivery Me thod Room Air Room Air This 55-year-old female is up ambulating in the room, is otherwise alert and interactive, no apparent distress. She is able to sit down on the bed for examination at this time. Sclera clear, no icterus, symmetrical facial function, speech is normal. Lungs are clear, good air entry, no wheezing or crackles, no tachypnea ours accessory muscle use. CV regular rate and rhythm, no murmur, normal S1-S2. Abdomen is obese but soft, no rebound or guarding at this time, bowel sounds are normal. She has maybe some mild right upper quadrant discomfort but nothing significant at this time. I do not feel any organomegaly. There is certainly no rebound or guarding. Skin visualized without rash or jaundice. Documenting provider has reviewed patient's vital signs: yes Course Course ED Course: The preliminary report per client services account manager is that there are concerns for cholecystitis. We are rechecking patient's labs at this time and awaiting radiology over read of the ultrasound. Patient's pain has improved. Will await the labs and ultrasound report and formulate a final eyes plan for this patient. It does seem likely that she will need admission and surgical removal of her gallbladder. Reevaluation(s) Time of Reevaluation #1: 23:40 Reevaluation #1: Have updated patient on her ultrasound and my conversation with the general surgeon Dr. Mathias. Her ultrasound is showing cholelithiasis and cholecystitis. It is felt that she needs hospitalization with IV antibiotics in proceed to cholecystectomy. I will make her inpatient as I do think there is a chance she might need ongoing antibiotics pending outcome of surgery, ultimately will leave that to the surgeon. Patient does not need anything for pain at this time. She understands will be starting antibiotics, supportive IV fluids. She will be NPO after midnight. Consultations Consultation #1: Did speak with Dr. Mathias our general surgeon. She has seen the ultrasound, reviewed patient's case. Patient should be admitted, started on Zosyn and she will do cholecystectomy tomorrow. Time: 23:18 Consultation #2: Did speak with our hospitalist Dr. Alfaro, he agrees to accept the patient on behalf of the hospitalist service. He is to let Yovani the night hospitalist service know to contact me if they need further sign-out as they may be doing the formal admission. Time: 23:21 Vital Signs Vital signs: Initial Vital Signs Temperature 97.9 F 04/07/25 21:52 Temperature Source Temporal Artery Scan 04/07/25 21:52 Pulse Rate 71 04/07/25 21:52 Respiratory Rate 16 04/07/25 21:52 Blood Pressure 161/101 H 04/07/25 21:52 Blood Pressure Mean 121 H 04/07/25 21:52 Blood Pressure Position Sitting 04/07/25 21:52 Pulse Oximetry 96 04/07/25 21:52 Oxygen Delivery Method Room Air 04/07/25 21:52 Vital Signs Temperature 97.9 F 04/07/25 21:52 Pulse Rate 71 04/07/25 21:52 Respiratory Rate 16 04/07/25 21:52 Blood Pressure 161/101 H 04/07/25 21:52 Pulse Oximetry 96 04/07/25 21:52 Oxygen Delivery Method Room Air 04/07/25 21:52 Temperature 97.9 F 04/07/25 21:52 Pulse Rate 74 04/07/25 22:45 Respiratory Rate 16 04/07/25 22:45 Blood Pressure 142/91 H 04/07/25 22:45 Pulse Oximetry 98 04/07/25 22:45 Oxygen Delivery Method Room Air 04/07/25 22:45 MDM - Abdominal Pain Lab Data Attestation: I reviewed the patient's lab results. Labs: Lab Results 04/07/25 04/07/25 Range/Units 21:53 22:42 WBC 7.22 (4.50-11.00) K/uL RBC 4.95 (4.00-5.20) m/uL Hgb 13.2 (12.0-16.0) gm/dL Hct 40.1 (33.0-51.0) % MCV 81 (80-100) fL MCH 27 (26-34) pg MCHC 33 (32-36) gm/dL RDW Coeff of Rik 12.4 (11.5-15.5) % Plt Count 264 (140-440) K/uL Neut % (Auto) 79.5 H (42.0-72.0) % Lymph % (Auto) 14.4 L (20-44) % [place] % (Auto) 5.4 (0.0-11.0) % Eos % (Auto) 0.3 (0.0-7.0) % Baso % (Auto) 0.3 (0.0-3.0) % Neut # (Auto) 5.70 (1.7-7.0) K/uL Lymph # (Auto) 1.00 (0.90-2.90) K/uL [place] # (Auto) 0.40 (0.00-0.90) K/UL Eos # (Auto) 0.02 (0.00-0.50) K/uL Baso # (Auto) 0.02 (0.00-0.30) K/uL Abs Immat Gran (auto) 0.01 (0.00-0.30) K/uL Imm/Tot Granulo (auto) 0.1 % Sodium 137 (135-149) mmol/L Potassium 3.6 (3.6-5.1) mmol/L Chloride 102 (96-114) mmol/L Carbon Dioxide 24 (20-32) mmol/L Anion Gap 11 (7-15) mEq/L BUN 14 (7-30) mg/dL Creatinine 0.8 (0.5-1.5) mg/dL Estimated Creat Clear 67.00 Estimated GFR 86 ml/min Glucose 129 H (60-115) mg/dL Lactate 0.8 (0.5-1.9) mmol/L Calcium 9.6 (8.4-10.6) mg/dL Total Bilirubin 0.7 (0.1-1.5) mg/dL Direct Bilirubin 0.2 (0.0-0.5) mg/dL AST 24 (12-35) U/L ALT 14 (4-35) U/L Alkaline Phosphatase 93 (40-150) U/L C-Reactive Protein 0.9 (0.5-1.0) mg/dL Total Protein 7.6 (6.0-8.3) g/dL Albumin 4.2 (3.3-5.0) g/dL Lipase 89 (23-300) U/L Urine Color Yellow (Yellow) Urine Appearance Clear (Clear) Urine pH 7.5 (5.0-8.5) Ur Specific [place] 1.020 (1.000-1.030) Urine Protein Negative (Negative) Urine Glucose (UA) Negative (Negative) Urine Ketones Negative (Negative) Urine Blood Trace-lysed A (Negative) Urine Nitrite Negative (Negative) Urine Bilirubin Negative (Negative) Urine Urobilinogen 0.2 (0.2-1.0) Ur Leukocyte Esterase Trace A (Negative) Urine RBC 0-2 (0-2) Urine WBC 2-5 (0-5) Ur Squamous Epith Cells Few (None-Few) Amorphous Sediment Moderate A (None) Urine Bacteria Few A (None) Imaging Data US - abdomen: Attestation: I have reviewed the pertinent imaging results. Radiologist's impression: Patient: SIDNEY GARNETT Facility:?[facility] Patient ID:?[id number] Site Patient ID:?[id number]. Site :?[id number] Study:?US-Abdomen US RUQ-04/07/2025 10:41:01 PM Ordering Physician:Jordan Terrell Final Report: INDICATION: Right upper quadrant abdomen pain. TECHNIQUE: Ultrasound abdomen limited. Sonographic images of the right upper quadrant were obtained using shabazz-scale and color Doppler images. COMPARISON: None. FINDINGS: Liver: Diffusely increased hepatic echogenicity. Increased in size as well measuring 19.6 cm in length. No suspicious masses. No intrahepatic biliary dilatation. Gallbladder: Cholelithiasis and biliary sludge. Mural thickening measuring 5 mm. Probable pericholecystic fluid. Negative sonographic Chanel`s sign. Common bile duct: Non-dilated, measuring 6 mm. Pancreas: Unremarkable. Right kidney: Normal in size. Normal echotexture and cortex. No suspicious masses, stones, or hydronephrosis. Vasculature: Proximal abdominal aorta and IVC are unremarkable. IMPRESSION: 1. Cholelithiasis and biliary sludge with gallbladder wall thickening and probable pericholecystic fluid. Despite a negative sonographic Chanel`s sign, findings could represent acute cholecystitis in the correct clinical setting. 2. Hepatomegaly with hepatic steatosis. Dictated by Eliseo Quesada MD @ 04/07/2025 11:13:39 PM (Electronic Signature) Discharge Plan Discharge Clinical Impression: Cholelithiasis Qualifiers: Cholelithiasis location: gallbladder Cholecystitis presence: with cholecystitis Cholecystitis acuity: acute Biliary obstruction: without biliary obstruction Qualified Code(s): K80.00 - Calculus of gallbladder with acute cholecystitis without obstruction Patient Disposition: Admitted As Inpatient
[2025-04-07 22:45] VITALS: BP 142/91; PULSE 74; RESP 16; O2SAT 98; O2SAT 99
[2025-04-07 22:48] LABS: Lactate* 0.8 mmol/L (0.5-1.9)
[2025-04-07 22:51] LABS: Hematocrit* 40.1 % (33.0-51.0); Hemoglobin* 13.2 gm/dL (12.0-16.0); Immature Granulocytes Abs Auto 0.01 K/uL (0.00-0.30); Immature Granulocytes Pct Auto 0.1 %; Mean Corpuscular HGB Conc 33 gm/dL (32-36); Mean Corpuscular Hemoglobin 27 pg (26-34); Mean Corpuscular Volume 81 fL (80-100); RDW Coefficient of Variation % 12.4 % (11.5-15.5); Red Blood Count* 4.95 m/uL (4.00-5.20); White Blood Count* 7.22 K/uL (4.50-11.00)
[2025-04-07 23:02] LABS: Lymphocytes Absolute Auto 1.00 K/uL (0.90-2.90); Slide Review Reflex No
[2025-04-07 23:03] LABS: Albumin* 4.2 g/dL (3.3-5.0); Chloride* 102 mmol/L (96-114)
[2025-04-07 23:04] LABS: Potassium* 3.6 mmol/L (3.6-5.1); Sodium* 137 mmol/L (135-149)
[2025-04-07 23:06] LABS: Blood Urea Nitrogen* 14 mg/dL (7-30); Creatinine* 0.8 mg/dL (0.5-1.5); Est. Creatinine Clearance* 67.00; Estimated Glomerular Filt Rate 86 ml/min
[2025-04-07 23:07] LABS: Alanine Aminotransferase* 14 U/L (4-35); Alkaline Phosphatase* 93 U/L (40-150); Anion Gap 11 mEq/L (7-15); Aspartate Amino Transferase* 24 U/L (12-35); Bilirubin Direct* 0.2 mg/dL (0.0-0.5); Bilirubin Total* 0.7 mg/dL (0.1-1.5); Calcium* 9.6 mg/dL (8.4-10.6); Carbon Dioxide* 24 mmol/L (20-32); Glucose* 129 mg/dL (60-115); Total Protein* 7.6 g/dL (6.0-8.3)
[2025-04-07] MEDS: PIPERACILLIN/TAZOBACTAM 3.375 GM in 0.9 % SODIUM CHLORIDE Mini-bag 100 ML IVPB (23:50)
[2025-04-08] VITALS (9 sets, daily range): BP systolic 110–140; BP diastolic 71–91; PULSE 64–86; RESP 16–22; TEMP 36.6–36.7; O2SAT 95–98
--- NOTE | 2025-04-08 01:05 | W.PM.TELEH&P ---
Telehealth- H&P: HPI History of Present Illness Time Seen by Provider: 01:05 Date Seen: 04/08/25 Chief complaint: upper abdominal pain Narrative: Daisy Palm is seen as an Interactive Telehealth visit. Daisy Palm is a 55 year old female with a past medical history of anxiety, depression, GERD, sleep apnea presents to the emergency room with complaint of upper abdominal pain. Patient reports she has been having some discomfort in her upper abdomen for past 2 weeks. Patient had worsening of epigastric pain today. Patient reports pain is radiating to back associate with nausea. Patient had ultrasound at outside facility today and she was told that she might have gallstones with cholecystitis. Patient denies any vomiting or fever chills chest pain or shortness of breath. Pain has got worse tonight and tried to come to the emergency room. On arrival to emergency room patient vitals are stable except elevated blood pressure. Lab workup shows normal white count lactic acid was normal. LFTs normal. Patient had a ultrasound which shows cholelithiasis with biliary sludge and gallbladder wall thickening concerning for cholecystitis. Surgery has been consulted. Patient was given Zosyn. Patient was referred to hospitalist service for admission and surgery is planning to take patient to the OR tomorrow. Review of Systems Status of ROS: Reports: 10 or more systems reviewed and unremarkable except as noted in History and below Narrative: All systems reviewed and stated as negative per the patient except as stated in HPI. GEN: denies fever or chills, denies fatigue Eye: denies visual changes HENT: denies throat pain RESP: denies shortness of breath, cough or sputum production CARDIAC: denies chest pain or palpitations GI: denies nausea, vomiting, or diarrhea SKIN: denies rash. PFSH [facility] Medical History Anxiety ?F41.9 - Anxiety disorder, unspecified (ICD-10) Depression ?F32.A - Depression, unspecified (ICD-10) Sleep apnea ?G47.30 - Sleep apnea, unspecified (ICD-10) Acid reflux ?K21.9 - Gastro-esophageal reflux disease without esophagitis (ICD-10) Social History Smoking Status: Never smoker How often do you have a drink containing alcohol: never AUDIT-C Alcohol total score: 0 Non-prescribed substance use: denies use Meds Home Medications and Allergies Home Medications ?Medication ?Instructions ?Recorded ?Confirmed ?Type esomeprazole magnesium 20 mg 20 mg PO DAILY 05/05/24 04/07/25 History capsule,delayed release hydroxyzine HCl 10 mg tablet 10 mg PO Q8H PRN 05/05/24 05/23/24 History sertraline 50 mg tablet (Zoloft) 50 mg PO DAILY 05/05/24 04/07/25 History tizanidine 4 mg capsule 4 mg PO Q6H PRN 05/05/24 04/07/25 History acetaminophen 500 mg tablet 1,000 mg PO Q6H PRN 05/09/24 05/23/24 History (Tylenol Extra Strength) celecoxib 100 mg capsule 100 mg PO BID PRN pain #30 caps 05/10/24 05/23/24 Rx Allergies Allergy/AdvReac Type Severity Reaction Status Date / Time No Known Drug Allergies Allergy Verified 04/07/25 21:56 Exam Narrative Exam Narrative: Physical Exam GENERAL: ?vital signs reviewed, well developed and nourished, in no distress HEENT: pupils are equal round and reactive to light, extraocular movements are grossly within normal limits and oral mucosa is moist. NECK: Supple without lymphadenopathy or thyromegaly according to nursing staff examination observation HEART: Regular rate and rhythm without any rubs, murmurs, or gallops. LUNGS: Clear to auscultation bilaterally with good air movement throughout ABDOMEN: Observation from nurse assisted exam, abdomen appears soft, RUQ tender w/o gaurding/rigidity and nondistended with Positive bowel sounds noted. EXTREMITIES: Strength and sensation is observed to be grossly within normal limits in the upper and lower extremities.? No focal strength deficit is observed. SKIN:? Observed warm and dry with color normal Const Vital Signs, click to edit/add: Vital Signs - 24 hr 04/07/25 21:52 04/07/25 22:45 04/07/25 22:45 Temperature 97.9 F Pulse Rate [Pulse Oximeter] 71 74 Respiratory Rate 16 16 Blood Pressure [Right Upper Arm] 161/101 H 142/91 H Pulse Oximetry 96 99 98 Oxygen Delivery Method Room Air Room Air 04/08/25 00:00 Temperature 97.9 F Pulse Rate [Pulse Oximeter] 64 Respiratory Rate 16 Blood Pressure [Right Upper Arm] 136/81 Pulse Oximetry 98 Oxygen Delivery Method Room Air Hospitalist - H&P: Result Labs Labs: Short CBC 04/07/25 Range/Units 22:42 WBC 7.22 (4.50-11.00) K/uL Hgb 13.2 (12.0-16.0) gm/dL Hct 40.1 (33.0-51.0) % Plt Count 264 (140-440) K/uL BMP 04/07/25 22:42 Sodium 137 Potassium 3.6 Chloride 102 Carbon Dioxide 24 BUN 14 Creatinine 0.8 Glucose 129 H Calcium 9.6 Liver Function 04/07/25 Range/Units 22:42 Total Bilirubin 0.7 (0.1-1.5) mg/dL Direct Bilirubin 0.2 (0.0-0.5) mg/dL AST 24 (12-35) U/L ALT 14 (4-35) U/L Alkaline Phosphatase 93 (40-150) U/L Albumin 4.2 (3.3-5.0) g/dL Urine 04/07/25 Range/Units 21:53 Urine Color Yellow (Yellow) Urine Appearance Clear (Clear) Urine pH 7.5 (5.0-8.5) Ur Specific Amigo 1.020 (1.000-1.030) Urine Protein Negative (Negative) Urine Glucose (UA) Negative (Negative) Assessment and Plan Assessment and plan (1) Cholecystitis, acute: Status: Acute (2) Cholelithiasis: Status: Acute Plan 55-year-old female with a past medical history of as mentioned in HPI presented with epigastric and right upper quadrant pain 1. Acute cholecystitis/cholelithiasis: Patient will be admitted as inpatient. Patient will be kept NPO. Continue empiric antibiotic. Surgery likely in AM. 2. N.p.o. for now. full code scd for DVT prophylaxis. Telehealth Visit:? Today's History and Physical is provided via interactive telehealth by FRANCOIS NARVAEZ.? Patient is located at [facility].? Provider is located at [facility].? Nursing staff assisted with the patient's exam. The visit being done today meets criteria for a telehealth visit and the patient or patients parent/guardian is aware the visit is a telehealth visit. Telehealth: Statement Statement Telehealth Visit: Today's History and Physical is provided via interactive telehealth by Francois Narvaez MD.? Patient is located at [facility].? Provider is located at [facility].? Nursing staff assisted with the patient's exam. The visit being done today meets criteria for a telehealth visit and the patient or patient?s parent/guardian is aware the visit is a telehealth visit.
[2025-04-08] MEDS: 0.9 % SODIUM CH + KCL 20 mEq/L 1,000 ML 100 ML IV ×3 (01:24→22:49)
[2025-04-08] MEDS: PIPERACILLIN/TAZOBACTAM 3.375 GM in 0.9 % SODIUM CHLORIDE Mini-bag 100 ML IVPB ×4 (05:04→22:48)
--- NOTE | 2025-04-08 05:19 | PC.NURSE ---
Pt came to floor @ 0045. RUQ pain reported in ED. Has rated pain 1/10 all night. Afebrile. Up IND and voiding. NPO since 0000. Pleasant and cooperative. Awaiting Sx later this am. No N/V since arrival.
--- NOTE | 2025-04-08 10:55 | PM.GSCN ---
History of Present Illness Consult details Date Seen: 04/08/25 Consult date: 04/08/25 Narrative: Patient presented to the emergency department last night with severe right upper quadrant abdominal pain. She has had about 5 similar episodes of pain in the past year, but nothing this severe. The pain comes in the middle of the night. It is epigastric with radiation to the right. The pain lasts for about 2 hours before subsiding completely. On Thursday she had a similar episode, but the pain was more severe. She was able to see her electronic intelligence officer on Thursday who ordered an abdominal ultrasound. Yesterday, the pain came back and was so severe that it prompted her to come into the emergency department. She does report some associated nausea, no vomiting. She has not noticed any correlation to food with most of her symptoms coming in the middle of the night. She has never had abdominal surgery before. She does report some low-grade fevers this week, but she has also been dealing with an infected tooth and recent root canal. This morning her pain has completely resolved, although she still feels sore on the right side. Review of Systems Status of ROS: Reports: 10 or more systems reviewed and unremarkable except as noted in History and below [facility] Medical History Anxiety ?F41.9 - Anxiety disorder, unspecified (ICD-10) Depression ?F32.A - Depression, unspecified (ICD-10) Sleep apnea ?G47.30 - Sleep apnea, unspecified (ICD-10) Acid reflux ?K21.9 - Gastro-esophageal reflux disease without esophagitis (ICD-10) Social History What is your current living situation?: I presently have a place to live Problems where you live details: NA In the past 12 months, utilities in danger of being shut off: no In past 12 months, lack of transportation kept you from medical appts, meetings, work, or getting things needed for daily living: no In the past 12 mos, have been you worried that your food would run out before you had money to buy more?: never true In the past 12 mos, the food you bought just didn't last and you didn't have money to buy more?: never true Highest level of school completed/degree received: Bachelor's degree Smoking Status: Never smoker How often do you have a drink containing alcohol: never AUDIT-C Alcohol total score: 0 Non-prescribed substance use: denies use Caffeine: No How often does anyone, including family, friends and others, physically hurt you: never How often does anyone, including family, friends and others, insult or talk down to you: never How often does anyone, including family, friends and others, threaten you with harm: never How often does anyone, including family, friends and others, scream or curse at you: never service: No Meds Home Medications and Allergies Home Medications ?Medication ?Instructions ?Recorded ?Confirmed ?Type esomeprazole magnesium 20 mg 20 mg PO DAILY 05/05/24 04/07/25 History capsule,delayed release hydroxyzine HCl 10 mg tablet 10 - 20 mg PO Q8H PRN 05/05/24 04/08/25 History sertraline 50 mg tablet (Zoloft) 50 mg PO DAILY 05/05/24 04/07/25 History tizanidine 4 mg capsule 4 mg PO Q6H PRN 05/05/24 04/07/25 History Allergies Allergy/AdvReac Type Severity Reaction Status Date / Time No Known Drug Allergies Allergy Verified 04/07/25 21:56 Exam Narrative: Exam Narrative: General: Alert and oriented, no acute distress. Respiratory: Equal breath rise bilaterally, maintained on room air CV: Well perfused Abdomen: Soft, nontender and nondistended. Const: Vital Signs, click to edit/add: Vital Signs - 24 hr 04/07/25 21:52 04/07/25 22:45 04/07/25 22:45 Temperature 97.9 F Pulse Rate [Left R adial] Pulse Rate [Pulse Oximeter] 71 74 Respiratory Rate 16 16 Blood Pressure [Le ft Arm] Blood Pressure [Ri ght Upper Arm] 161/101 H 142/91 H Pulse Oximetry 96 99 98 Oxygen Delivery Me thod Room Air Room Air 04/08/25 00:00 04/08/25 01:08 04/08/25 01:08 Temperature 97.9 F 97.8 F Pulse Rate [Left R adial] 68 Pulse Rate [Pulse Oximeter] 64 Respiratory Rate 16 16 16 Blood Pressure [Le ft Arm] 140/91 H Blood Pressure [Ri ght Upper Arm] 136/81 Pulse Oximetry 98 98 98 Oxygen Delivery Me thod Room Air Room Air Room Air 04/08/25 01:09 04/08/25 01:36 04/08/25 07:00 Temperature 97.8 F 97.8 F 98.1 F Pulse Rate [Left R adial] 68 68 76 Pulse Rate [Pulse Oximeter] Respiratory Rate 16 16 20 Blood Pressure [Le ft Arm] 140/91 H 140/91 H 124/84 Blood Pressure [Ri ght Upper Arm] Pulse Oximetry 98 98 96 Oxygen Delivery Me thod Room Air Room Air Room Air Results Labs Labs: Abnormal lab results 04/07/25 04/07/25 Range/Units 21:53 22:42 Neut % (Auto) 79.5 H (42.0-72.0) % Lymph % (Auto) 14.4 L (20-44) % Glucose 129 H (60-115) mg/dL Urine Blood Trace-lysed A (Negative) Ur Leukocyte Esterase Trace A (Negative) Amorphous Sediment Moderate A (None) Urine Bacteria Few A (None) Diabetes panel 04/07/25 Range/Units 22:42 Sodium 137 (135-149) mmol/L Potassium 3.6 (3.6-5.1) mmol/L Chloride 102 (96-114) mmol/L Carbon Dioxide 24 (20-32) mmol/L BUN 14 (7-30) mg/dL Creatinine 0.8 (0.5-1.5) mg/dL Glucose 129 H (60-115) mg/dL Calcium 9.6 (8.4-10.6) mg/dL AST 24 (12-35) U/L ALT 14 (4-35) U/L Alkaline Phosphatase 93 (40-150) U/L Total Protein 7.6 (6.0-8.3) g/dL Albumin 4.2 (3.3-5.0) g/dL Calcium panel 04/07/25 Range/Units 22:42 Calcium 9.6 (8.4-10.6) mg/dL Albumin 4.2 (3.3-5.0) g/dL Pituitary panel 04/07/25 Range/Units 22:42 Sodium 137 (135-149) mmol/L Potassium 3.6 (3.6-5.1) mmol/L Chloride 102 (96-114) mmol/L Carbon Dioxide 24 (20-32) mmol/L BUN 14 (7-30) mg/dL Creatinine 0.8 (0.5-1.5) mg/dL Glucose 129 H (60-115) mg/dL Calcium 9.6 (8.4-10.6) mg/dL Adrenal panel 04/07/25 Range/Units 22:42 Sodium 137 (135-149) mmol/L Potassium 3.6 (3.6-5.1) mmol/L Chloride 102 (96-114) mmol/L Carbon Dioxide 24 (20-32) mmol/L BUN 14 (7-30) mg/dL Creatinine 0.8 (0.5-1.5) mg/dL Glucose 129 H (60-115) mg/dL Calcium 9.6 (8.4-10.6) mg/dL Total Bilirubin 0.7 (0.1-1.5) mg/dL AST 24 (12-35) U/L ALT 14 (4-35) U/L Alkaline Phosphatase 93 (40-150) U/L Total Protein 7.6 (6.0-8.3) g/dL Albumin 4.2 (3.3-5.0) g/dL All other labs normal. Imaging Abdominal ultrasound report/results: report reviewed and image reviewed Progress Note:A&P Assessment and plan (1) Cholecystitis, acute: Status: Acute Plan Patient presented to the emergency department with clinical workup and symptoms concerning for acute cholecystitis. Labs were within normal limits. No elevation in her liver enzymes or bilirubin. Abdominal ultrasound does show some small stones and sludge, as well as some mild gallbladder wall thickening. During examination she was very tender. This morning the patient has had resolution of her symptoms. However, given the severity of her symptoms last night as well as increased frequency of right-sided abdominal pain over the last week I am recommending we proceed with a laparoscopic cholecystectomy. No concern at this time for choledocholithiasis. I had a detailed conversation with the patient regarding the diagnosis of acute cholecystitis. We discussed the treatment options including observation with diet modification and laparoscopic cholecystectomy. We discussed the risks of surgery (including but not limited to) the risks of bleeding, infection, injury to other structures in the abdomen including bile duct injury, bile leak and conversion to an open operation. We discussed the possibility that the patient's pain not improve with surgery. We discussed the possibility of permanent post-operative diarrhea that may require medical management. Additionally, the conceivably of complications requiring additional surgery or further hospitalization were also discussed including the risks of [place], respiratory failure, stroke and blood clots. The patient voiced an understanding of our conversation, had the opportunity to ask questions, agreed to accept the risks of surgery and asked that we proceed with surgery.
--- NOTE | 2025-04-08 18:48 | PC.NURSE ---
progress note Pt cooperative with caleb, a/o x4, Up IND in room. pt on clear liquid diet until midnight per MD. Diet tolerated, IV patent and fluids running. Pt scheduled for surgery at 0900.
[2025-04-08] MEDS: ACETAMINOPHEN 325 MG TABLET PO (23:49)
[2025-04-09] VITALS (19 sets, daily range): BP systolic 109–133; BP diastolic 66–88; PULSE 61–85; RESP 14–20; TEMP 36–36.8; O2SAT 90–97
[2025-04-09] MEDS: PIPERACILLIN/TAZOBACTAM 3.375 GM in 0.9 % SODIUM CHLORIDE Mini-bag 100 ML IVPB (05:19)
--- NOTE | 2025-04-09 05:41 | PC.NURSE ---
Shift note: Patient is alert and oriented. Vitally stable. NPO status maintained for possible surgery. Pre-ops teaching given. At 2330, pt complained of headache of 4/10. Standing order PRN Tylenol 650mg given which was effective as indicated by pt. Pt denied abdominal pain and tenderness since taken over at 2300. No nausea and vomiting.
[2025-04-09] MEDS: LACTATED RINGERS 1000 ML 1,000 ML 125 ML IV (09:15)
[2025-04-09] MEDS: BUPIVACAINE 0.25% 30 ML 20 ML INJECTION (11:18)
--- NOTE | 2025-04-09 11:26 | PM.GSPRC ---
Operative Note Date of procedure: 04/09/25 Pre-op diagnosis: Acute cholecystitis Post-op diagnosis: Same Type of Procedure: Laparoscopic cholecystectomy Indications: Patient is a 55-year-old female presented with persistent right upper quadrant abdominal pain. Clinical workup and symptoms were consistent with acute cholecystitis. Risks and benefits of operative intervention were discussed at length with the patient. Risks included but was not limited to: Bleeding, infection, risk of damage to surrounding structures, possible need for additional procedures, possible need to convert to an open operation and postoperative complications such as pneumonia, pulmonary emboli or [place]. All questions and concerns were addressed with the patient agreeing to proceed. Procedure Description: After discussing the risks and benefits of the procedure, the patient signed informed consent.? The operative site was marked and the patient was brought to the operating room and placed on the operating table in supine position.? Care was taken to pad the patient's pressure points.?? The patient was then intubated by anesthesia.?? The operative site was then prepped and draped in the usual sterile fashion.? A time-out was then performed. Entrance to the abdomen was gained via a 5 mm Visiport in the left upper quadrant. The abdomen was insufflated and briefly surveyed for signs of injury. There was none. 11 mm umbilical port was placed as well as 2 working ports along the right costal margin. Patient was then placed in reverse Trendelenburg position with the right side up. The gallbladder was thick and distended. An attempt was made to decompress the fundus with a laparoscopic needle, however the bile was too thick to aspirate. I was able to eventually grasp the fundus fundus firmly in the midbody and retracted cephalad. [A small amount of dissection was needed to free omental adhesions from the gallbladder.] The infundibulum was grasped. A combination of hook cautery and blunt dissection was used to carefully dissect out the cystic duct and artery. The cystic artery could clearly be seen along the body of the gallbladder. This was dissected free with 2 clips applied distally and 1 proximally before being transected with the scissors. I continued to clear off the cystic duct, obtaining the critical view with no other intervening structures identified. The cystic duct was dilated with several stones within it. These were milked into the body of the gallbladder. Two 5 mm clips were applied proximally and 1 distally before being transected with scissors. The proximal clips did go across the entire cystic duct, but due to the size of the duct itself a decision was made to place an 0 Vicryl endoloop. This was placed onto the cystic duct to ensure ligation of the duct. The gallbladder was then taken off of the liver bed. A small artery on the inflammatory rind was clipped with a 5 mm clip for hemostasis. This portion of the operation was difficult secondary to the friable nature in inflammation of the gallbladder itself. There was spillage of stones and bile. The gallbladder was then removed from the abdomen using an Endo-Catch bag. The gallbladder bed was surveyed for hemostasis, which was excellent. All identified stones were removed from the abdomen. A small amount of bile which had spilled was suctioned. The right upper quadrant was irrigated thoroughly. The ports were then removed under direct vision. The umbilical port fascia was closed with 0 Vicryl. The skin was closed with absorbable subcuticular suture. Instrument sponge and needle counts were correct at the end of the case. The patient was then woken and transferred to the PACU in stable condition. Findings: Inflamed gallbladder, consistent with acute cholecystitis. Anesthesia: GETA Surgeon: Rachel Mathias MD Estimated blood loss (mL): 25 Specimen: Gallbladder Condition: stable Disposition: PACU
--- NOTE | 2025-04-09 11:37 | P.ANES_ITS ---
Anesthesia Charges Start Date/Time Anesthesia Start Date: 04/09/25 Anesthesia Start Time: 09:15 Stop Date/Time Anesthesia Stop Date: 04/09/25 Anesthesia Stop Time: 11:35 Summary Emergency: CORRESPONDENCE RENEW CLERK Coding CPT Codes CPT Codes: ANESTH SURG UPPER ABDOMEN - 94991 ([id number]) P2 - PATIENT W/MILD SYST DISEASE, QZ - CORRESPONDENCE RENEW CLERK SVC W/O LEAD GAME DESIGNER BY Additional Codes: Summary - Emergency: CORRESPONDENCE RENEW CLERK ([id number])
--- NOTE | 2025-04-09 11:37 | W.ANESCHARGE ---
Anesthesia Charges Start Date/Time Anesthesia Start Date: 04/09/25 Anesthesia Start Time: 09:15 Stop Date/Time Anesthesia Stop Date: 04/09/25 Anesthesia Stop Time: 11:35 Summary Emergency: LABORER WRECKING AND SALVAGING Coding CPT Codes CPT Codes: ANESTH SURG UPPER ABDOMEN - 52071 ([id number]) P2 - PATIENT W/MILD SYST DISEASE, QZ - LABORER WRECKING AND SALVAGING SVC W/O AMMONIA SOLUTION PREPARER BY Additional Codes: Summary - Emergency: LABORER WRECKING AND SALVAGING ([id number])
[2025-04-09] MEDS: ONDANSETRON 2 MG/ML inj IVP (13:42)
--- NOTE | 2025-04-09 19:10 | PC.NURSE ---
Discharge - Pt alert, oriented, cooperative. Up independently in room, to surgery at approximately 0900. Pt arrived from PACU at approximately 1205. Rated pain as 0-1/10, pain medication offered and declined by pt. Lap sites x 4 CDI. Able void without difficulty and eat without nausea/vomiting. Pt observed to ambulate in halls with spouse. Education r/t diet and incision care provided by RN with pt and spouse verbalizing. IV removed with catheter intact. Pt d/c to home via wheelchair at approximately 1845 with spouse.
--- NOTE | 2025-04-10 08:06 | PM.DS1 ---
DS: Providers Provider Date Seen: 04/09/25 Date of admission: 04/08/25 07:57 Primary care physician: Maikel Ulloa PA-C Admitting Clinician: Francois Narvaez MD Attending Physician on discharge: Rachel Mathias MD DS: Summary Hospital Course Hospital Course: Patient presented to the hospital with severe right upper quadrant abdominal pain. Clinical workup and symptoms were consistent with acute cholecystitis. She underwent a laparoscopic cholecystectomy. Postoperatively she did well. Patient was discharged to home once she was tolerating a regular diet, voiding without difficulty and ambulating independently. Her pain was well controlled on oral medications. Time Spent with Patient Time attestation: Total time spent providing and/or coordinating discharge services: Exam Narrative: Exam Narrative: Please see exam from same date. Const: Vital Signs, click to edit/add: Vital Signs - 24 hr 04/09/25 11:30 04/09/25 11:35 04/09/25 11:40 Temperature 97.2 F L Pulse Rate 78 80 74 Pulse Rate [Left R adial] Respiratory Rate 20 20 18 Blood Pressure 113/66 115/68 118/76 Blood Pressure [Le ft Arm] Pulse Oximetry 92 96 95 Oxygen Delivery Me thod Nasal Cannula Nasal Cannula Nasal Cannula Oxygen Flow Rate 4 4 4 04/09/25 11:45 04/09/25 11:50 04/09/25 11:55 Temperature Pulse Rate 76 85 76 Pulse Rate [Left R adial] Respiratory Rate 14 18 18 Blood Pressure 117/77 113/74 120/70 Blood Pressure [Le ft Arm] Pulse Oximetry 95 95 92 Oxygen Delivery Me thod Nasal Cannula Room Air Room Air Oxygen Flow Rate 4 04/09/25 12:00 04/09/25 12:05 04/09/25 12:25 Temperature 96.8 F L 96.8 F L Pulse Rate 78 Pulse Rate [Left R adial] 75 75 Respiratory Rate 14 16 16 Blood Pressure 128/73 Blood Pressure [Le ft Arm] 120/82 119/77 Pulse Oximetry 93 92 92 Oxygen Delivery Me thod Room Air Room Air Room Air Oxygen Flow Rate 04/09/25 12:40 04/09/25 12:55 04/09/25 13:10 Temperature 97.2 F L 97.1 F L Pulse Rate Pulse Rate [Left R adial] 68 68 61 Respiratory Rate 16 16 Blood Pressure Blood Pressure [Le ft Arm] 126/75 109/78 127/78 Pulse Oximetry 90 95 94 Oxygen Delivery Me thod Room Air Room Air Room Air Oxygen Flow Rate 04/09/25 13:40 04/09/25 14:10 04/09/25 15:00 Temperature 97.2 F L 98.2 F Pulse Rate Pulse Rate [Left R adial] 73 84 Respiratory Rate 16 16 Blood Pressure Blood Pressure [Le ft Arm] 124/87 130/81 Pulse Oximetry 92 92 95 Oxygen Delivery Me thod Room Air Room Air Room Air Oxygen Flow Rate 04/09/25 15:10 04/09/25 16:10 Temperature 98.0 F Pulse Rate Pulse Rate [Left R adial] 81 72 Respiratory Rate 18 18 Blood Pressure Blood Pressure [Le ft Arm] 132/78 119/88 Pulse Oximetry 95 95 Oxygen Delivery Me thod Room Air Room Air Oxygen Flow Rate Discharge Plan Discharge Disposition: Home, Self-Care Date of Admission: 04/08/25 07:57 Attending Provider on Discharge: Rachel Mathias Primary Care Provider: Maikel Ulloa Condition: Improved Anticipated Discharge Date/Time: 04/09/25 16:00 Discharge Medications: New hydrocodone-acetaminophen 5-325 mg tablet 1 tab PO Q6H PRN (Reason: pain) Qty: 15 0RF senna 8.6 mg capsule 8.6 mg PO DAILY PRN (Reason: constipation) Qty: 90 0RF Continued sertraline [Zoloft] 50 mg tablet 50 mg PO DAILY tizanidine 4 mg capsule 4 mg PO Q6H PRN Rx Instructions: do not exceed 3 doses per 24 hrs hydroxyzine HCl 10 mg tablet 10 - 20 mg PO Q8H PRN Rx Instructions: Take 1-2 tab by mouth every 8 hrs as needed for anxiety esomeprazole magnesium 20 mg capsule,delayed release(DR/EC) 20 mg PO DAILY Discharge Orders: Discharge Order (Routine); Ordered 04/09/25 Ordered By: Rachel Mathias Patient Education: Hydrocodone/Acetaminophen (By mouth), Senna (By mouth), Low Fat Diet (DC), General Anesthesia (DC), Laparoscopic Cholecystectomy (DC), NH+C Post-Operative Instructions: Laparoscopic Cholecystectomy Additional Instructions: You were prescribed a narcotic pain medication. In addition you may supplement with Tylenol and/or ibuprofen. Be sure to not exceed greater than 4 g of Tylenol in a 24 hour period. While on narcotic pain medicine please take stool softeners. A prescription of stool softeners has been sent to the pharmacy. Stop if having greater than 2 stools per day. You have Steri-Strips dressings in place, allow these to fall off on their own. Okay to shower starting tomorrow. Do not soak in a bath or swim for 2 weeks. Follow-up with Dr. Mathias in 2-3 weeks. Please call if you are experiencing severe pain, nausea, vomiting, difficulty urinating, fever or not had a bowel movement in 4 days after surgery. Activity Level: No strenuous activity Activity Detail: Activity as tolerated. Avoid strenuous activity. No lifting greater than 20 lb for 2 weeks. Discharge Diet: Low Fat/Low Cholesterol Follow Up Appointments: Rachel Mathias MD [Staff Physician, General Surgery] - 04/26/25 8:30 am Referral Note: Maikel Ulloa, [facility] [Primary Care Provider, Family Practice] Forms: Patient Belongings, Work/School Release, [facility] Info Instructions
== END 2025-04-09 18:45 | disposition home or self-care (01) | DRG 419 ==
LOC: ED 23:42 → MEDSURG 04-08 10:01 → ED 04-10 15:11 → MEDSURG 04-10 15:12
PROVIDERS: Surgery; Admitting Provider Family Medicine; Emergency Provider Family Medicine; PCP Physician Assistant Medical; Visit Provider Family Medicine
PROC: 0FT44ZZ Resection of Gallbladder, Percutaneous Endoscopic Approach (ICD-10-PCS; CPT 47562; principal; 2025-04-09 09:30)
DX: K80.00 Calculus of gallbladder with acute cholecystitis without obstruction (principal); K76.0 Fatty (change of) liver, not elsewhere classified; G47.30 Sleep apnea, unspecified; K21.9 Gastro-esophageal reflux disease without esophagitis; F41.9 Anxiety disorder, unspecified; F32.A Depression, unspecified
CPT/HCPCS: 47562; 00790; 36415; 76705; 80053; 81001; 82248; 83605; 83690; 85025; 86140; 87086; 93005; 94761; 99140; 99284; 99285; A9270; J0330; J0665; J1100; J1171; J1630; J1885; J2250; J2405; J2543; J2704; J3010; J3490; J7120